=== PATIENT | female | born 1930 | race Caucasian/White ===

== ENCOUNTER 2016-06-10 14:23 | Outpatient (CLI) | payer MEDICARE, OTHER | END 2016-06-10 14:24 | disposition home or self-care (01) | DX: I10 Essential (primary) hypertension (principal) ==

== ENCOUNTER 2016-10-08 19:48 | Outpatient (CLI) | payer MEDICARE, OTHER ==
--- NOTE | 2016-10-08 20:55 | Ultrasound Preliminary Report ---
Exam: US Duplex Ext Veins Right IMPRESSION: No evidence for deep venous thrombosis. [facility] SITE ID: [id number]
--- NOTE | 2016-10-08 20:57 | Ultrasound Report ---
EXAM: RIGHT LOWER EXTREMITY VENOUS ULTRASOUND EXAM DATE: 10/08/2016 08:42 PM. CLINICAL HISTORY: Right leg edema. COMPARISON: None. TECHNIQUE: Real-time sonographic vascular imaging was performed by the tar leveler through the lower extremity utilizing both color-flow and Doppler spectral analysis. Multiple pharmaceutical representative static penny ges were saved for review. FINDINGS: Common Femoral Vein (CFV): Normal. CFV-GSV Junction: Normal. Profunda Femoral Vein (PFV): Normal. Femoral Vein (FV) Prox: Normal. Femoral Vein (FV) Mid: Normal. Femoral Vein (FV) Dist: Normal. Popliteal Vein: Normal. Posterior Tibial Veins: Normal. Peroneal Veins: Normal. Other: None. IMPRESSION: No evidence for deep venous thrombosis. [facility] Referring Provider Line: [phone] SITE ID: [id number]
== END 2016-10-08 19:49 | disposition home or self-care (01) ==
LOC: DI 19:48
PROVIDERS: ATTEND Family Medicine
DX: R60.0 Localized edema (principal)

== ENCOUNTER 2016-11-12 14:27 | Outpatient (CLI) | payer MEDICARE, OTHER ==
--- NOTE | 2016-11-12 18:02 | Ultrasound Report ---
ULTRASOUND RIGHT MEDIAL THIGH: 11/12/2016 CLINICAL INDICATION: Palpable abnormality. TECHNIQUE: Real-time scanning was performed with software support representative static images obtained. FINDINGS: Ultrasound of the palpable abnormality identified by the patient was performed. At this s ite, there is a varicosity of the greater saphenous vein. No other abnormality is appreciated in the region. IMPRESSION: GREATER SAPHENOUS VARICOSITY CORRELATING WITH THE PALPABLE ABNORMALITY. JOB #: [id number] EXT JOB #:
== END 2016-11-12 14:28 | disposition home or self-care (01) ==
LOC: DI 14:27
PROVIDERS: ATTEND Family Medicine
DX: I83.91 Asymptomatic varicose veins of right lower extremity (principal)
CPT/HCPCS: 76882

== ENCOUNTER 2017-08-01 08:00 | Outpatient (CLI) | payer MEDICARE, OTHER ==
[2017-08-01 12:43] LABS: BASOPHILS # (AUTO) 0.1 10^3/uL (0.0-0.1); BASOPHILS % (AUTO) 1.7 %; EOSINOPHILS # (AUTO) 0.1 10^3/uL (0.0-0.7); EOSINOPHILS % (AUTO) 1.8 %; HGB - HEMOGLOBIN 13.2 g/dL (12.0-16.0); LYMPHOCYTES % (AUTO) 41.9 %; MEAN CORPUSCULAR HEMOGLOBIN 29.4 pg (27.0-31.0); MEAN CORPUSCULAR HGB CONC 33.9 g/dL (32.0-36.0); MEAN CORPUSCULAR VOLUME 86.7 fL (81.0-99.0); MEAN PLATELET VOLUME 8.1 fL (7.9-10.8); MONOCYTES # (AUTO) 0.6 10^3/uL (0.0-1.0); MONOCYTES % (AUTO) 11.8 %; NEUTROPHILS % (AUTO) 42.8 %; PLT - PLATELET COUNT 267 10^3/uL (130-450); RED CELL DISTRIBUTION WIDTH 13.6 % (12.0-15.0); WHITE BLOOD COUNT 4.7 x10^3/uL (4.8-10.8)
[2017-08-01 13:27] LABS: ALBUMIN 4.1 g/dL (3.2-5.5); ALBUMIN/GLOBULIN RATIO 1.3 (1.0-2.2); ALKALINE PHOSPHATASE 49 IU/L (42-121); ALT ALANINE AMINOTRANSFERASE 23 IU/L (10-60); AST ASPARTATE AMINOTRANSFERASE 26 IU/L (10-42); BILIRUBIN,TOTAL 0.2 mg/dL (0.2-1.0); BUN - BLOOD UREA NITROGEN 21 mg/dL (6-20); CARBON DIOXIDE - CO2 26 mmol/L (21-32); CHLORIDE 101 mmol/L (101-111); CHOL/HDL RATIO 3.2 (<4.4); CHOLESTEROL 199 mg/dL; CREATININE 0.7 mg/dL (0.4-1.0); GFR - MDRD 80 (>89); GLUCOSE 100 mg/dL (70-100); HDL CHOLESTEROL 62 mg/dL; LDL CHOLESTEROL,CALCULATED 119 mg/dL; LDL/HDL RATIO 1.9 (<4.4); SODIUM 133 mmol/L (135-145); TOTAL PROTEIN 7.2 g/dL (6.7-8.2); VLDL CHOLESTEROL 18 mg/dL
== END 2017-08-01 08:01 | disposition home or self-care (01) ==
LOC: LAB.WCP 08:00
PROVIDERS: ATTEND Family Medicine
DX: I10 Essential (primary) hypertension (principal); E78.1 Pure hyperglyceridemia
CPT/HCPCS: 36415; 80053; 80061; 83721; 84443; 85025

== ENCOUNTER 2017-10-02 06:57 | Day surgery (SDC) | payer MEDICARE, OTHER ==
[~2017-10-02 06:57] MED LIST: CYCLOPENTOLATE 1% OPHTH DROPS 2 ML ONE; KETOROLAC 0.45% OPHTH DROPS ONE; PHENYLEPHRINE 2.5% OPHTH 2 ML DROPS ONE; PROPARACAINE 0.5% OPHTH DROPS 15 ML ONE
[2017-10-02] MEDS ORDERED: CYCLOPENTOLATE 1% OPHTH DROPS 2 ML RIGHTEYE ONE (07:11)
[2017-10-02] MEDS ORDERED: KETOROLAC 0.45% OPHTH DROPS RIGHTEYE ONE (07:11)
[2017-10-02] MEDS ORDERED: PROPARACAINE 0.5% OPHTH DROPS 15 ML RIGHTEYE ONE (07:11)
[2017-10-02] MEDS ORDERED: PHENYLEPHRINE 2.5% OPHTH 2 ML DROPS RIGHTEYE ONE (07:11)
[2017-10-02] MEDS ORDERED: BRIMONIDINE 0.2% OPHTH DROPS 5 ML ONE (07:19)
[2017-10-02] MEDS ORDERED: TIMOLOL 0.5% OPHTH DROPS ONE (07:19)
[2017-10-02] MEDS ORDERED: BSS/LIDOCAINE/EPINEPHRINE 1 ML SYRINGE ONE (07:19)
[2017-10-02] MEDS ORDERED: PROPARACAINE 0.5% OPHTH DROPS 15 ML ONE (07:19)
[2017-10-02] MEDS ORDERED: VANCOMYCIN OPHTHALMI 8MG/0.8ML 8 MG/0.8 ML SYRINGE IO ONE (07:19)
[2017-10-02] MEDS ORDERED: TRIAMCIN/MOXIFLOX OPHTHALMIC 0.6 ML VIAL IO ONE (07:19)
[2017-10-02] MEDS ORDERED: LACTATED RINGERS 500 ML IV ONE (07:35)
[2017-10-02 07:36] VITALS: BP 182/55
== END 2017-10-02 06:58 | disposition home or self-care (01) ==
LOC: SDS 06:57
PROVIDERS: ATTEND Ophthalmology
PROC: 08RJ3JZ Replacement of Right Lens with Synthetic Substitute, Percutaneous Approach (ICD-10-PCS; principal; 2017-10-02)
DX: Z53.8 Procedure and treatment not carried out for other reasons (principal); H25.811 Combined forms of age-related cataract, right eye
CPT/HCPCS: 66984; A9270; J3490

== ENCOUNTER 2017-10-30 07:20 | Day surgery (SDC) | payer MEDICARE, OTHER ==
[2017-10-30] MEDS ORDERED: BSS/LIDOCAINE/EPINEPHRINE 1 ML SYRINGE ONE (07:22)
[2017-10-30] MEDS ORDERED: BRIMONIDINE 0.2% OPHTH DROPS 5 ML ONE (07:22)
[2017-10-30] MEDS ORDERED: TIMOLOL 0.5% OPHTH DROPS ONE (07:22)
[2017-10-30] MEDS ORDERED: PROPARACAINE 0.5% OPHTH DROPS 15 ML RIGHTEYE ONE ×3 (07:55→09:00)
[2017-10-30] MEDS ORDERED: CYCLOPENTOLATE 1% OPHTH DROPS 2 ML RIGHTEYE ONE (07:55)
[2017-10-30] MEDS ORDERED: PHENYLEPHRINE 2.5% OPHTH 2 ML DROPS RIGHTEYE ONE (07:55)
[2017-10-30] MEDS ORDERED: KETOROLAC 0.45% OPHTH DROPS RIGHTEYE ONE (07:55)
[2017-10-30] MEDS ORDERED: LACTATED RINGERS 500 ML IV ONE (08:03)
[2017-10-30] MEDS ORDERED: BRIMONIDINE 0.2% OPHTH DROPS 5 ML OPTH ONE ×2 (08:52→09:00)
[2017-10-30] MEDS ORDERED: EPINEPHrine 1 MG/ML AMP IR ONE ×2 (08:53→09:08)
[2017-10-30] MEDS ORDERED: CHONDR SULF/HYALURONATE SYRINGE IO ONE ×2 (08:53→09:08)
[2017-10-30] MEDS ORDERED: BSS/LIDOCAINE/EPINEPHRINE 1 ML SYRINGE IO ONE ×3 (08:54→09:08)
[2017-10-30] MEDS ORDERED: TIMOLOL 0.5% OPHTH DROPS OPTH ONE ×2 (08:54→09:08)
[2017-10-30] MEDS: TRIAMCIN/MOXIFLOX OPHTHALMIC 0.6 ML VIAL IO ONE ×2 (08:55→09:09)
[2017-10-30] MEDS: VANCOMYCIN OPHTHALMI 8MG/0.8ML 8 MG/0.8 ML SYRINGE IO ONE ×2 (08:56→09:09)
[2017-10-30] MEDS ORDERED: MIDAZOLAM 2 MG/2 ML VIAL IVP ONE (09:25)
[2017-10-30 09:32] VITALS: BP 164/59
--- NOTE | 2017-10-30 10:25 | OPERATIVE REPORT ---
DATE OF SERVICE: 10/30/2017 Physician: Horacio Lubin MD PREOPERATIVE DIAGNOSIS: Visually significant cataract, right eye. This was her first cataract surgery. POSTOPERATIVE DIAGNOSIS: Visually significant cataract, right eye. This was her first cataract surgery. NAME OF PROCEDURE: Phacoemulsification with posterior chamber intraocular lens implant, right eye. SURGEON: Horacio Lubin MD ANESTHESIA: Monitored anesthesia care. COMPLICATIONS: None. OPERATIVE INDICATIONS: This is an 87-year-old woman with progressive vision loss in the right eye due to 2+ nuclear sclerotic, 2+ cortical, and 1+ posterior subcapsular cataract. Best corrected visual acuity was 20/25, with glare to 20/400 in the right eye. INDICATIONS FOR SURGERY: Overall decrease in vision, difficulty seeing words, closed caption of game scores on TV, difficulty seeing street signs, difficulty driving in low light or at night, difficulty driving at night because of head lights from other vehicles, difficulty with glare or bright lights in any situation, and difficulty tracking a golf ball. She was consented at length concerning risks and benefits of cataract surgery, after which she expressed a desire to proceed with surgery. OPERATIVE PROCEDURE: The patient was taken into OR #3, and placed under monitored anesthesia care. A surgical timeout was conducted confirming correct patient, correct procedure, and correct surgical site. She was placed under the LenSx laser, and her eye was docked to the laser interface. Laser performed the capsulotomy, lens softening, phaco wounds, and arcuate keratotomy incisions. She was then moved to the operating microscope, given topical anesthesia, and then prepped and draped in the usual sterile fashion. The eye was entered at the 12 and 9 o'clock positions. Intracameral Shugarcaine was injected into the anterior chamber, followed by Viscoat. A capsulorrhexis flap created by the LenSx laser was removed from the anterior chamber. Nucleus was hydrodissected and phacoemulsified. The cortex was evacuated using automated infusion and aspiration. Provisc was injected in the capsular bag, and a 16.0 diopter multifocal Toric intraocular lens was inserted into the bag and rotated to axis 095. Approximately 0.8 mL of a mixture of triamcinolone, moxifloxacin, and vancomycin was injected subconjunctivally in the superior quadrant for infection and inflammation prophylaxis. I and A was used to evacuate the viscoelastic materials. The lens was verified to still be in axis 095. The eye was inflated to physiologic pressure using balanced salt solution, and found to be watertight. Again, the lens was verified a final time to be in the proper axis. The patient was taken from the operating room in good condition, and given postop instructions. TD: 10/30/2017 09:42
== END 2017-10-30 07:21 | disposition home or self-care (01) ==
LOC: SDS 07:20
PROVIDERS: ATTEND Ophthalmology
PROC: 08RJ3JZ Replacement of Right Lens with Synthetic Substitute, Percutaneous Approach (ICD-10-PCS; principal; 2017-10-30 08:30)
DX: E11.36 Type 2 diabetes mellitus with diabetic cataract (principal); I10 Essential (primary) hypertension
CPT/HCPCS: 66984; A9270; J3490; V2632

== ENCOUNTER 2018-01-29 08:29 | Day surgery (SDC) | payer MEDICARE, OTHER ==
[~2018-01-29 08:29] MED LIST changes: +BRIMONIDINE 0.2% OPHTH DROPS 5 ML ONE; +BSS/LIDOCAINE/EPINEPHRINE 1 ML SYRINGE ONE; +EPINEPHrine 1 MG/ML AMP ONE; +TIMOLOL 0.5% OPHTH DROPS ONE; +TRIAMCIN/MOXIFLOX OPHTHALMIC 0.6 ML VIAL IO ONE; +VANCOMYCIN OPHTHALMI 8MG/0.8ML 8 MG/0.8 ML SYRINGE IO ONE
--- NOTE | 2018-01-29 08:38 | ANESTHESIA ---
Pre-Anesthesia VS, & Labs - Diagnosis Left senile combined cataract - Procedure Left laser assisted phaco with IOL implant Height 5 ft 4 in - Is Patient ?: No Home Medications and Allergies Ascorbic Acid [Vitamin C] 500 mg PO DAILY 10/01/17 Losartan Potassium 25 mg PO DAILY 10/01/17 Multivitamin [Multiple Vitamins] 1 each PO DAILY 10/01/17 Allergies/Adverse Reactions: Allergies Allergy/AdvReac Type Severity Reaction Status Date / Time Sulfa (Sulfonamide Allergy Rash Verified 12/31/17 12:45 Antibiotics) hydrocodone AdvReac Nausea Verified 01/29/18 08:54 Anes History & Medical History - Medical History Cardiovascular: reports: Hypertension Pulmonary: reports: None Gastrointestinal: reports: GERD Urinary: reports: Incontinence, Frequency Musculoskeletal: reports: Osteoarthritis Endocrine/Autoimmune: reports: None Skin: reports: None - Surgical History Eyes Ears Nose Throat (EENT): Tonsil/Adenoidectomy Gynecologic: Hysterectomy Dermatologic: Skin cancer surgery Plan Anesthesia Type: MAC Consent for Procedure(s) Verified and Reviewed: Yes Code Status: Attempt Resuscitation ASA classification: 2-Mild systemic disease Is this case an emergency?: No
[2018-01-29] MEDS ORDERED: PHENYLEPHRINE 2.5% OPHTH 2 ML DROPS LEFTEYE ONE (08:54)
[2018-01-29] MEDS ORDERED: CYCLOPENTOLATE 1% OPHTH DROPS 2 ML LEFTEYE ONE (08:54)
[2018-01-29] MEDS ORDERED: KETOROLAC 0.45% OPHTH DROPS LEFTEYE ONE (08:54)
[2018-01-29] MEDS ORDERED: PROPARACAINE 0.5% OPHTH DROPS 15 ML LEFTEYE ONE ×2 (08:54→10:30)
[2018-01-29] MEDS ORDERED: LACTATED RINGERS 500 ML IV ONE (08:55)
[2018-01-29] MEDS ORDERED: MIDAZOLAM 2 MG/2 ML VIAL IVP ONE (10:11)
[2018-01-29] MEDS ORDERED: BSS/LIDOCAINE/EPINEPHRINE 1 ML SYRINGE IO ONE (10:48)
[2018-01-29] MEDS ORDERED: EPINEPHrine 1 MG/ML AMP IR ONE (10:48)
[2018-01-29] MEDS ORDERED: BRIMONIDINE 0.2% OPHTH DROPS 5 ML OPTH ONE (10:48)
[2018-01-29] MEDS ORDERED: CHONDR SULF/HYALURONATE SYRINGE IO ONE (10:49)
[2018-01-29] MEDS ORDERED: TIMOLOL 0.5% OPHTH DROPS OPTH ONE (10:49)
[2018-01-29 11:19] VITALS: BP 164/64
--- NOTE | 2018-01-29 13:03 | OPERATIVE REPORT ---
DATE OF SERVICE: 01/29/2018 Physician: Horacio Lubin MD PREOPERATIVE DIAGNOSIS: Visually significant cataract, left eye. Cataract surgery was performed on the right eye on 11/08/2017. POSTOPERATIVE DIAGNOSIS: Visually significant cataract, left eye. Cataract surgery was performed on the right eye on 11/08/2017. NAME OF PROCEDURE: Phacoemulsification with posterior chamber intraocular lens implant, left eye, with laser assist. SURGEON: Horacio Lubin MD. ANESTHESIA: Monitored anesthesia care. COMPLICATIONS: None. OPERATIVE INDICATIONS: This is an 87-year-old woman with progressive vision loss in the left eye, due to 2+ nuclear sclerotic and 3+ cortical cataract. Best corrected visual acuity was 20/25 with glare to 20/400 in the left eye. Indications for surgery were overall decrease in vision, difficulty reading small print, difficulty seeing street signs, difficulty driving in low light or at night, difficulty driving at night because of headlights from other vehicles, and difficulty with glare or bright lights in any situation, and difficulty tracking a golf ball. She was consented at length, concerning risks and benefits of cataract surgery, after which she expressed a desire to proceed with surgery. OPERATIVE PROCEDURE: The patient was taken into OR #3 and placed under monitored anesthesia care. A surgical timeout was conducted, confirming the correct patient, correct procedure, and correct surgical site. She was placed on the LenSx laser and her eye was docked to the laser interface. The laser performed a capsulotomy, lens softening, phaco wounds, and arcuate keratotomy incisions. She was then moved to the operating microscope, given topical anesthesia, and then prepped and draped in the usual sterile fashion. The eye was entered at the 6 and 3 o'clock positions. Intracameral Shugarcaine was injected into the anterior chamber, followed by Viscoat. The capsulorrhexis flap created by the LenSx laser was removed from the anterior chamber. The nucleus was hydrodissected and phacoemulsified. The cortex was evacuated using automated infusion and aspiration. Provisc was injected in the capsular bag and a 20.5-diopter multifocal, toric lens was inserted into the bag and rotated to axis 075. Approximately 0.8 mL of a mixture of triamcinolone, moxifloxacin, and vancomycin was injected subconjunctivally in the superior quadrant for infection and inflammation prophylaxis. I and A was used to evacuate the viscoelastic materials. The eye was inflated to physiologic pressure, using balanced salt solution, and found to be watertight, and again, the lens was verified to be in the correct axis to correct toricity. The patient was taken from the operating room in good condition and given postop instructions. TD: 01/29/2018 11:57 JEYSON
== END 2018-01-29 08:30 | disposition home or self-care (01) ==
LOC: SDS 08:29
PROVIDERS: ATTEND Ophthalmology
PROC: 08RK3JZ Replacement of Left Lens with Synthetic Substitute, Percutaneous Approach (ICD-10-PCS; principal; 2018-01-29 09:30)
DX: H25.812 Combined forms of age-related cataract, left eye (principal); I10 Essential (primary) hypertension; K21.9 Gastro-esophageal reflux disease without esophagitis
CPT/HCPCS: 66984; A9270; J3490; V2632

== ENCOUNTER 2018-07-08 14:48 | Outpatient (CLI) | payer MEDICARE, OTHER ==
--- NOTE | 2018-07-09 09:50 | XRAY Report ---
Reason: COUGH,CHRONIC Procedure Date: 07/08/2018 Accession Number: [id number] / [id number] Procedure: WCP - Chest 2 View X-Ray CPT Code: 44013 FULL RESULT: EXAM: CHEST RADIOGRAPHY EXAM DATE: 07/08/2018 03:03 PM. CLINICAL HISTORY: Cough, chronic. COMPARISON: None. TECHNIQUE: 2 views. FINDINGS: Lungs/Pleura: No focal opacities evident. No pleural effusion. No pneumothorax. Normal volumes. Mediastinum: Heart and mediastinal contours are unremarkable. Other: None. IMPRESSION: Normal 2-view chest radiography. [facility]
== END 2018-07-08 14:49 | disposition home or self-care (01) ==
LOC: DI.WCP 14:48
PROVIDERS: ATTEND Family Medicine
DX: R05 Cough (principal)
CPT/HCPCS: 71046

== ENCOUNTER 2018-07-15 08:00 | Outpatient (CLI) | payer MEDICARE, OTHER ==
[2018-07-15 20:01] LABS: BASOPHILS % (AUTO) 1.2 %; HGB - HEMOGLOBIN 13.6 g/dL (12.0-16.0); LYMPHOCYTES % (AUTO) 48.4 %; MEAN CORPUSCULAR HGB CONC 32.7 g/dL (32.0-36.0); MEAN CORPUSCULAR VOLUME 88.5 fL (81.0-99.0); MEAN PLATELET VOLUME 7.9 fL (7.9-10.8); MONOCYTES # (AUTO) 0.5 10^3/uL (0.0-1.0); MONOCYTES % (AUTO) 12.1 %; NEUTROPHILS # (AUTO) 1.5 10^3/uL (1.5-6.6); NEUTROPHILS % (AUTO) 37.3 %; PLT - PLATELET COUNT 281 10^3/uL (130-450); RED CELL DISTRIBUTION WIDTH 13.9 % (12.0-15.0); WHITE BLOOD COUNT 4.1 x10^3/uL (4.8-10.8)
[2018-07-15 20:17] LABS: ALBUMIN 3.9 g/dL (3.2-5.5); ALBUMIN/GLOBULIN RATIO 1.3 (1.0-2.2); ALKALINE PHOSPHATASE 48 IU/L (42-121); ALT ALANINE AMINOTRANSFERASE 23 IU/L (10-60); AST ASPARTATE AMINOTRANSFERASE 27 IU/L (10-42); BILIRUBIN,TOTAL 0.8 mg/dL (0.2-1.0); BUN - BLOOD UREA NITROGEN 20 mg/dL (6-20); CARBON DIOXIDE - CO2 25 mmol/L (21-32); CHLORIDE 99 mmol/L (101-111); CHOL/HDL RATIO 3.5 (<4.4); CHOLESTEROL 208 mg/dL; CREATININE 0.7 mg/dL (0.4-1.0); GFR - MDRD 79 (>89); GLUCOSE 111 mg/dL (70-100); HDL CHOLESTEROL 60 mg/dL; LDL CHOLESTEROL,CALCULATED 129 mg/dL; LDL/HDL RATIO 2.2 (<4.4); SODIUM 132 mmol/L (135-145); VLDL CHOLESTEROL 19 mg/dL
== END 2018-07-15 23:59 | disposition home or self-care (01) ==
LOC: LAB.WCP 08:00
PROVIDERS: ATTEND Family Medicine
DX: I10 Essential (primary) hypertension (principal); E78.1 Pure hyperglyceridemia
CPT/HCPCS: 36415; 80053; 80061; 83721; 85025

== ENCOUNTER 2018-07-21 08:51 | Outpatient (CLI) | payer MEDICARE, OTHER ==
[2018-07-21 13:36] LABS: BILIRUBIN,URINE NEGATIVE (NEGATIVE); GLUCOSE, URINE (UA) NEGATIVE (NEGATIVE); KETONES,URINE (UA) NEGATIVE (NEGATIVE); LEUKOCYTE ESTERASE, URINE TRACE (NEGATIVE); NITRITE,URINE NEGATIVE (NEGATIVE); OCCULT BLOOD,URINE NEGATIVE (NEGATIVE); PROTEIN,URINE NEGATIVE (NEGATIVE); UROBILINOGEN,URINE 0.2 (NORMAL) E.U./dL (NORMAL)
[2018-07-21 13:47] LABS: BACTERIA,URINE Rare /HPF (None Seen); CLARITY,URINE CLEAR (CLEAR); RBC,URINE None Seen /HPF (0-5); SQUAMOUS EPITHELIAL CELL,UR MANY Squamous (<= Few)
== END 2018-07-21 23:59 | disposition home or self-care (01) ==
LOC: LAB.R 08:51
PROVIDERS: ATTEND Family Medicine
DX: R35.0 Frequency of micturition (principal)
CPT/HCPCS: 81001

== ENCOUNTER 2018-07-24 10:01 | Outpatient (CLI) | payer MEDICARE, OTHER | END 2018-07-24 23:59 | disposition home or self-care (01) | LOC: LAB.R 10:01 | PROVIDERS: ATTEND Registered Nurse | DX: N30.00 Acute cystitis without hematuria (principal) | CPT/HCPCS: 87086 ==

== ENCOUNTER 2018-07-27 12:50 | Outpatient (CLI) | payer MEDICARE, OTHER ==
--- NOTE | 2018-07-27 15:41 | Ultrasound Report ---
Reason: PERIPHERAL ARTERY DISEASE,BONE DISORDER Procedure Date: 07/27/2018 Accession Number: [id number] / [id number] Procedure: US - Duplex Lwr Ext Arterial Bilat CPT Code: FULL RESULT: EXAM: BILATERAL LOWER EXTREMITY ARTERIAL DOPPLER ULTRASOUND EXAM DATE: 07/27/2018 01:03 PM. CLINICAL HISTORY: Peripheral artery disease, bone disorder. COMPARISON: None. TECHNIQUE: Real-time sonographic vascular imaging was performed by the tool and die machinist, utilizing color-flow, Doppler flow, and spectral analysis. Multiple construction sales representative static images were saved for review. FINDINGS: Arterial duplex of the bilateral lower extremities was performed which demonstrates 3 vessel patency to both ankles as well as perfusion of the dorsalis pedis artery. With the exception of the right posterior tibial and peroneal arteries and left peroneal artery, brisk arterial systolic upstrokes are preserved by spectral Doppler. Right Lower Extremity: FELLER BUNCHER OPERATOR: PSV 120 cm/sec. PSFA: PSV 96.2 cm/sec. MSFA: PSV 15.2 cm/sec. DSFA: PSV 125.1 cm/sec. PFA: PSV 98 cm/sec. POP: PSV 75.1 cm/sec. HILARIO: PSV 85.7 cm/sec. VOCATIONAL REHABILITATION CONSULTANT: PSV 15.8 cm/sec. PALLAVI: PSV 47 cm/sec. DPA: PSV 34 cm/sec. Left Lower Extremity: FELLER BUNCHER OPERATOR: PSV 100.2 cm/sec. PSFA: PSV 90.2 cm/sec. MSFA: PSV 83.5 cm/sec. DSFA: PSV 135.4 cm/sec. PFA: PSV 17.1 cm/sec. POP: PSV 61.6 cm/sec. HILARIO: PSV 84.7 cm/sec. VOCATIONAL REHABILITATION CONSULTANT: PSV 87.6 cm/sec. PALLAVI: PSV 13.5 cm/sec. DPA: PSV 23.8 cm/sec. IMPRESSION: Patent three-vessel inflow to both ankles with preserved vascularity of the bilateral dorsalis pedis arteries. Blunted Doppler signal to the left peroneal and right peroneal and posterior tibial arteries suggests some degree of underlying peripheral arterial disease. [facility]
--- NOTE | 2018-07-28 09:26 | DEXA Report ---
Reason: PERIPHERAL ARTERY DISEASE,BONE DISORDER Procedure Date: 07/27/2018 Accession Number: [id number] / [id number] Procedure: DEX - Dexa Spine and/or Hip CPT Code: FULL RESULT: EXAM: Dexa Spine and/or Hip DATE: 07/27/2018 2:06 PM CLINICAL HISTORY: PERIPHERAL ARTERY DISEASE,BONE DISORDER TECHNIQUE: Dual energy x-ray absorptiometry (DXA) was performed on a [employer] System. Regions measured are the AP Spine, femoral neck, and if needed forearm. COMPARISON: 12/21/2015. In accordance with the International Society for Clinical Densitometry (ISCD) guidelines, data from previous exams may be reanalyzed using current recommendations and techniques. This is done to allow a more accurate basis for comparison with the current study. FINDINGS: The data for the lumbar spine is as follows: BMD (g/cm/cm) T-SCORE Z-SCORE REGION L1 0.843 -2.4 -0.4 L2 0.932 -2.2 -0.3 L3 1.173 -0.2 1.7 L4 1.073 -1.1 0.9 TOTAL 1.010 -1.4 0.5 NOTE: All evaluable vertebrae are used for classification The data for the hip is as follows: BMD (g/cm/cm) T-SCORE Z-SCORE REGION Neck 0.756 -2.0 0.4 TOTAL 0.790 -1.7 0.6 NOTE: The femoral neck or total proximal femur, whichever is lowest, is used for classification. DXA RESULTS SUMMARY: Spine SCAN DATE AGE BMD CHANGE VS CHANGE VS PREVIOUS PREVIOUS % 07[age]27/2018 [age] 1.010 -0.035 -3.3 12/21/2015 85.1 1[age]045 * Denotes significant change at the 95% confidence level. Denotes dissimilar scan types or analysis methods. DXA RESULTS SUMMARY: Hip SCAN DATE AGE BMD CHANGE VS CHANGE VS PREVIOUS PREVIOUS % [birth year]27[birth year]2018 86.7 0.79 -0.003 -0.4 [birth year]21[birth year]2015 85.1 0.793 * Denotes significant change at the 95% confidence level. Denotes dissimilar scan types or analysis methods. IMPRESSION: THE WHO CLASSIFICATION BASED ON THE INTERNATIONAL REFERENCE STANDARD IS OSTEOPENIA. THE FRACTURE RISK IS INCREASED. RECOMMENDATION: Patients with diagnosis of osteoporosis or osteopenia should have regular bone mineral density assessment. For those eligible for Medicare, routine testing is allowed once every 2 years. Testing frequency can be increased for patients who have rapidly progressing disease or for those who are receiving medical therapy to restore bone mass. COMMENT: World Health Organization (WHO) definitions for osteoporosis and osteopenia: NORMAL BMD: T-score at -1.0 or higher, fracture risk is low OSTEOPENIA BMD: T-score between -1.0 and -2.5, fracture risk is increased. OSTEOPOROSIS BMD: T-score at -2.5 or lower, fracture risk is high. National Osteoporosis Foundation recommends: 1. Obtain adequate dietary calcium (at least 1200 mg per day) and vitamin D (400-800 international units per day). 2. Participate, as appropriate, in regular weightbearing and muscle-strengthening exercise. 3. Avoid tobacco use and reduce alcohol and caffeine intake. 4. For more detailed information see the website at www.NOF.org.
== END 2018-07-27 12:51 | disposition home or self-care (01) ==
LOC: DI 12:50
PROVIDERS: ATTEND Family Medicine
DX: M85.89 Other specified disorders of bone density and structure, multiple sites (principal); I73.9 Peripheral vascular disease, unspecified
CPT/HCPCS: 77080; 93925

== ENCOUNTER 2019-10-15 09:20 | Outpatient (CLI) | payer MEDICARE, OTHER ==
[2019-10-15 12:16] LABS: BASOPHILS # (AUTO) 0.1 10^3/uL (0.0-0.1); EOSINOPHILS # (AUTO) 0.1 10^3/uL (0.0-0.7); HGB - HEMOGLOBIN 13.4 g/dL (12.0-16.0); LYMPHOCYTES % (AUTO) 40.2 %; MEAN CORPUSCULAR HEMOGLOBIN 28.4 pg (27.0-31.0); MEAN CORPUSCULAR HGB CONC 32.3 g/dL (32.0-36.0); MEAN CORPUSCULAR VOLUME 87.9 fL (81.0-99.0); MEAN PLATELET VOLUME 10.1 fL (7.9-10.8); MONOCYTES # (AUTO) 0.6 10^3/uL (0.0-1.0); MONOCYTES % (AUTO) 11.7 %; NEUTROPHILS # (AUTO) 2.2 10^3/uL (1.5-6.6); NEUTROPHILS % (AUTO) 45.9 %; PLT - PLATELET COUNT 289 10^3/uL (130-450); RED BLOOD COUNT 4.72 10^6/uL (4.20-5.40); WHITE BLOOD COUNT 4.9 x10^3/uL (4.8-10.8)
[2019-10-15 13:00] LABS: ALBUMIN 4.1 g/dL (3.2-5.5); ALBUMIN/GLOBULIN RATIO 1.3 (1.0-2.2); ALKALINE PHOSPHATASE 57 IU/L (42-121); ALT ALANINE AMINOTRANSFERASE 25 IU/L (10-60); AST ASPARTATE AMINOTRANSFERASE 28 IU/L (10-42); BILIRUBIN,TOTAL 0.7 mg/dL (0.2-1.0); BUN - BLOOD UREA NITROGEN 18 mg/dL (6-20); CALCIUM 9.3 mg/dL (8.5-10.3); CARBON DIOXIDE - CO2 27 mmol/L (21-32); CHLORIDE 100 mmol/L (101-111); CHOL/HDL RATIO 3.7 (<4.4); CHOLESTEROL 214 mg/dL; CREATININE 0.8 mg/dL (0.4-1.0); GLUCOSE 104 mg/dL (70-100); HDL CHOLESTEROL 58 mg/dL; LDL CHOLESTEROL,CALCULATED 137 mg/dL; LDL/HDL RATIO 2.4 (<4.4); SODIUM 136 mmol/L (135-145); TOTAL PROTEIN 7.3 g/dL (6.7-8.2); VLDL CHOLESTEROL 19 mg/dL
== END 2019-10-15 23:59 | disposition home or self-care (01) ==
LOC: LAB.WCP 09:20
PROVIDERS: ATTEND Family Medicine
DX: I10 Essential (primary) hypertension (principal); E78.1 Pure hyperglyceridemia
CPT/HCPCS: 36415; 80053; 80061; 83721; 84443; 85025

== ENCOUNTER 2020-02-02 07:00 | Outpatient (CLI) | payer MEDICARE, OTHER ==
[2020-02-02 16:59] LABS: BILIRUBIN,URINE NEGATIVE (NEGATIVE); GLUCOSE, URINE (UA) NEGATIVE (NEGATIVE); KETONES,URINE (UA) NEGATIVE (NEGATIVE); LEUKOCYTE ESTERASE, URINE SMALL (NEGATIVE); NITRITE,URINE NEGATIVE (NEGATIVE); OCCULT BLOOD,URINE NEGATIVE (NEGATIVE); PROTEIN,URINE NEGATIVE (NEGATIVE); UROBILINOGEN,URINE 0.2 (NORMAL) E.U./dL (NORMAL)
[2020-02-02 17:18] LABS: CLARITY,URINE CLEAR (CLEAR)
[2020-02-02 17:19] LABS: BACTERIA,URINE None Seen /HPF (None Seen); RBC,URINE None Seen /HPF (0-5); SQUAMOUS EPITHELIAL CELL,UR FEW Squamous (<= Few)
== END 2020-02-02 23:59 | disposition home or self-care (01) ==
LOC: LAB.R 07:00
PROVIDERS: ATTEND Nurse Practitioner Obstetrics & Gynecology
DX: R35.0 Frequency of micturition (principal)
CPT/HCPCS: 81001; 87077; 87086; 87181

== ENCOUNTER 2020-04-28 09:27 | Outpatient (CLI) | payer MEDICARE, OTHER ==
[2020-04-28 12:29] LABS: BASOPHILS # (AUTO) 0.1 10^3/uL (0.0-0.1); BASOPHILS % (AUTO) 1.8 %; EOSINOPHILS # (AUTO) 0.1 10^3/uL (0.0-0.7); HGB - HEMOGLOBIN 14.1 g/dL (12.0-16.0); LYMPHOCYTES # (AUTO) 1.8 10^3/uL (1.5-3.5); LYMPHOCYTES % (AUTO) 39.6 %; MEAN CORPUSCULAR HEMOGLOBIN 28.7 pg (27.0-31.0); MEAN CORPUSCULAR HGB CONC 32.4 g/dL (32.0-36.0); MEAN CORPUSCULAR VOLUME 88.4 fL (81.0-99.0); MONOCYTES # (AUTO) 0.5 10^3/uL (0.0-1.0); MONOCYTES % (AUTO) 10.5 %; NEUTROPHILS # (AUTO) 2.1 10^3/uL (1.5-6.6); NEUTROPHILS % (AUTO) 45.9 %; PLT - PLATELET COUNT 293 10^3/uL (130-450); RED BLOOD COUNT 4.92 10^6/uL (4.20-5.40); RED CELL DISTRIBUTION WIDTH 13.2 % (12.0-15.0); WHITE BLOOD COUNT 4.6 x10^3/uL (4.8-10.8)
[2020-04-28 12:57] LABS: ALBUMIN 4.2 g/dL (3.2-5.5); ALBUMIN/GLOBULIN RATIO 1.4 (1.0-2.2); ALKALINE PHOSPHATASE 54 IU/L (42-121); ALT ALANINE AMINOTRANSFERASE 22 IU/L (10-60); AST ASPARTATE AMINOTRANSFERASE 25 IU/L (10-42); BILIRUBIN,TOTAL 0.7 mg/dL (0.2-1.0); BUN - BLOOD UREA NITROGEN 19 mg/dL (6-20); CALCIUM 9.2 mg/dL (8.5-10.3); CARBON DIOXIDE - CO2 26 mmol/L (21-32); CHLORIDE 101 mmol/L (101-111); CHOL/HDL RATIO 4.3 (<4.4); CHOLESTEROL 245 mg/dL; CREATININE 0.8 mg/dL (0.4-1.0); GLUCOSE 112 mg/dL (70-100); HDL CHOLESTEROL 57 mg/dL; LDL CHOLESTEROL,CALCULATED 160 mg/dL; LDL/HDL RATIO 2.8 (<4.4); TOTAL PROTEIN 7.1 g/dL (6.7-8.2); VLDL CHOLESTEROL 28 mg/dL
== END 2020-04-28 23:59 | disposition home or self-care (01) ==
LOC: LAB.WCP 09:27
PROVIDERS: ATTEND Family Medicine
DX: I10 Essential (primary) hypertension (principal); E78.1 Pure hyperglyceridemia; M85.80 Other specified disorders of bone density and structure, unspecified site
CPT/HCPCS: 36415; 80053; 80061; 83721; 84443; 85025

== ENCOUNTER 2020-07-11 07:00 | Outpatient (CLI) | payer MEDICARE, OTHER ==
[2020-07-11 12:03] LABS: HCT - HEMATOCRIT 42.1 % (37.0-47.0); HGB - HEMOGLOBIN 13.4 g/dL (12.0-16.0); MEAN CORPUSCULAR HEMOGLOBIN 28.5 pg (27.0-31.0); MEAN CORPUSCULAR HGB CONC 31.8 g/dL (32.0-36.0); MEAN CORPUSCULAR VOLUME 89.6 fL (81.0-99.0); MEAN PLATELET VOLUME 10.2 fL (7.9-10.8); RED BLOOD COUNT 4.7 10^6/uL (4.20-5.40); RED CELL DISTRIBUTION WIDTH 13.2 % (12.0-15.0); WHITE BLOOD COUNT 4.8 x10^3/uL (4.8-10.8)
[2020-07-11 12:30] LABS: T4 (THYROXINE) 7.69 ug/dL (6.09-12.23)
[2020-07-11 12:34] LABS: THYROID STIMULATING HORMONE 2.82 uIU/mL (0.34-5.60)
== END 2020-07-11 23:59 | disposition home or self-care (01) ==
LOC: LAB.WCP 07:00
PROVIDERS: ATTEND Obstetrics & Gynecology
DX: R53.83 Other fatigue (principal); Z13.21 Encounter for screening for nutritional disorder; R53.81 Other malaise
CPT/HCPCS: 36415; 82306; 83036; 84436; 84443; 84480; 85027

== ENCOUNTER 2020-08-04 19:59 | Inpatient (IN) | payer MEDICARE, OTHER ==
[2020-08-04 21:00] LABS: BASOPHILS # (AUTO) 0.1 10^3/uL (0.0-0.1); BASOPHILS % (AUTO) 1.7 %; EOSINOPHILS # (AUTO) 0.1 10^3/uL (0.0-0.7); EOSINOPHILS % (AUTO) 2.3 %; HCT - HEMATOCRIT 41.9 % (37.0-47.0); HGB - HEMOGLOBIN 13.7 g/dL (12.0-16.0); LYMPHOCYTES # (AUTO) 1.9 10^3/uL (1.5-3.5); LYMPHOCYTES % (AUTO) 37.3 %; MEAN CORPUSCULAR HEMOGLOBIN 28.8 pg (27.0-31.0); MEAN CORPUSCULAR HGB CONC 32.7 g/dL (32.0-36.0); MEAN PLATELET VOLUME 9.5 fL (7.9-10.8); MONOCYTES # (AUTO) 0.5 10^3/uL (0.0-1.0); MONOCYTES % (AUTO) 9.9 %; NEUTROPHILS # (AUTO) 2.5 10^3/uL (1.5-6.6); NEUTROPHILS % (AUTO) 48.6 %; PLT - PLATELET COUNT 284 10^3/uL (130-450); RED BLOOD COUNT 4.76 10^6/uL (4.20-5.40); RED CELL DISTRIBUTION WIDTH 13.3 % (12.0-15.0); WHITE BLOOD COUNT 5.2 x10^3/uL (4.8-10.8)
[2020-08-04 21:13] LABS: ALBUMIN 4.1 g/dL (3.2-5.5); ALBUMIN/GLOBULIN RATIO 1.3 (1.0-2.2); BILIRUBIN,TOTAL 0.4 mg/dL (0.2-1.0); CALCIUM 9.3 mg/dL (8.5-10.3); CREATININE 0.8 mg/dL (0.4-1.0); POTASSIUM 3.6 mmol/L (3.5-5.0); TOTAL PROTEIN 7.3 g/dL (6.7-8.2)
--- NOTE | 2020-08-04 21:33 | XRAY Report ---
PROCEDURE: Chest 1 View X-Ray INDICATIONS: Chest Pain TECHNIQUE: One view of the chest was acquired. COMPARISON: CXR 07/08/2018. FINDINGS: Surgical changes and devices: None. Lungs and pleura: No pleural effusions or pneumothorax. Lungs are clear. Mediastinum: Mediastinal contours appear normal. Aortic arch atherosclerotic calcifications. Heart s ize is normal. Bones and chest wall: No suspicious bony lesions. Overlying soft tissues appear unremarkable. IMPRESSION: No acute cardiopulmonary abnormality. Reviewed by: Shlomo Winslow MD on 08/04/2020 9:31 PM PDT Approved by: Shlomo Winslow MD on 08/04/2020 9:31 PM PDT Station ID: [id number]
[2020-08-04] MEDS ORDERED: oxyCODONE 5 MG TABLET PO PRN (22:26)
[2020-08-04] MEDS ORDERED: SODIUM CHLORIDE FLUSH 0.9% 10 ML SYRINGE IVP PRN (22:26)
[2020-08-04] MEDS ORDERED: ACETAMINOPHEN 325 MG TABLET PO PRN (22:26)
[2020-08-04] MEDS ORDERED: ONDANSETRON ODT 4 MG TABLET TL PRN (22:26)
[2020-08-04] MEDS ORDERED: ONDANSETRON 4 MG/2 ML VIAL IVP PRN (22:26)
[2020-08-04] MEDS ORDERED: ASPIRIN 325 MG TABLET PO STA (22:27)
--- NOTE | 2020-08-04 22:34 | HISTORY & PHYSICAL EXAMINATION ---
Chief Complaint - Chief Complaint Chief Complaint: chest pain History of Present Illness - Admitted From Admitted From:: Home - History Obtained From Records Reviewed: [facility] History obtained from: patient and Dr. Lane Exam Limitations: none - History of Present Illness HPI Comment/Other: 89-year-old female whose coronary artery risk factors include age, hypertension, that presents with central chest burning that radiates straight through to her back. Better with antacids and worse with food. Started yesterday. This is a more severe manifestation of symptoms that she has been having off and on for the last 3 to 4 years. It still has been mild, and only lasted an hour or 2. This is the first time is lasted this long and has been so severe. Anytime she tried to eat anything, even drinking water, the burning was severe. Prilosec did not help. But at acids [id number] did help. She is a non-smoker, does not take nonsteroidals on a regular basis. There is no shortness of breath, nausea, palpitations, jaw pain, arm pain with this. She thinks, she is not sure, that she may have had ulcers 20 or 30 years ago. She cannot remember.She has an occasional abdominal bloating, but no change in bowel lindsey bits. There is never been blood in her stool. She has never vomited blood. Temperature was 36.5. Pulse was 71. Blood pressure went from 174 initially and was 203 systolic after an hour and a half. Respirations were 16 and unlabored and she was 99% to 100% on room air. Physical exam was negative. Her initial troponin is mildly elevated in the low 30s. Unfortunately she has no previous EKGs to compare to and her current EKG is abnormal. As such she is being placed in observation for monitoring her cardiac enzymes. In the ER she was treated with aspirin,. No other medications were given. No antacids, no proton pump inhibitor. Chest x-ray without acute cardiopulmonary finding. 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 dad age 97 of natural causes. 1 brother w mental health issues. 1 sister with alcoholism. 1 daughter healthy Living arrangement: At home Living Situation: With family Social History Notes: Drinks 1 glass of wine/week. Never smoked. No history of recreational substance abuse. DPOA is daughter Leslye Fink. She is originally from [facility]. 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 First and second took her to [place] where she worked for the [employer] and [employer]. Second . She made her third has been online and came to live on [facility] in 2012. He was already living here. He of lung cancer in 2017. - Substance History Use: Uses substance without health or social issues: NONE Abuse: Recurrent use of substance despite neg consequences: NONE Dependence: Experiences withdrawal or developed tolerances: NONE - POLST Patient has POLST: No POLST Status: Full Code (Advanced Directive in PCP EMR) Meds/Allgy - Home Medications Home Medications: Ambulatory Orders Medication Instructions Recorded Confirmed Ascorbic Acid [Vitamin C] 500 mg PO DAILY 10/01/17 12/31/17 Losartan Potassium 25 mg PO DAILY 10/01/17 12/31/17 Multivitamin [Multiple Vitamins] 1 each PO DAILY 10/01/17 12/31/17 - Allergies Allergies/Adverse Reactions: Allergies Allergy/AdvReac Type Severity Reaction Status Date / Time Sulfa (Sulfonamide Allergy Rash Verified 08/04/20 20:19 Antibiotics) hydrocodone AdvReac Nausea Verified 08/04/20 20:19 Review of Systems - Constitutional Constitutional: reports: Fatigue (Used to walk twice a day. Now down to once a day at most. Nonspecific vague fatigue. No shortness of breath, edema with this.). denies: Fever, Chills, Weakness, Poor appetite, Diaphoresis, Night sweats - Eyes Eyes: reports: Irritation, Other (Astigmatism was repaired by Dr. Lubin and s he wears glasses) - Ears, Nose & Throat Ears, Nose & Throat: reports: Nasal discharge, Nasal obstruction, Nasal congestion, Postnasal drainage. denies: Ear pain, Hearing loss, Hearing aids, Tinnitus, Vertigo, Dentures, Sore throat, Hoarseness - Cardiovascular Cariovascular: reports: Chest pain, Edema (Right thigh and right leg off and on, chronic, years). denies: Irregular heart rate, Palpitations, Lightheadedness, S yncope, Exertional dyspnea, Decr. exercise tolerance, Orthopnea - Respiratory Respiratory: reports: Cough (Chronic, off-and-on, daily, nonproductive. She thinks it is allergies). denies: Wheezing, Snoring, Hemoptysis, Orthopnea, SOB at rest, SOB with exertion - Gastrointestinal Gastrointestinal: reports: Abdominal distention (Abdomen gets bloated off-and-on), Bloating. denies: Abdominal pain, Constipation, Diarrhea, Change in bowel habits, Black stools, Bloody stools, Nausea, Vomiting - Genitourinary Genitourinary: reports: Dysuria, Other (has vag irritation from pessary, painful to urinate, unable to empty bladder. Feels heavy pelvix at times.) - Musculoskeletal Musculoskeletal: reports: Joint pain (Mainly in her fingers.), Other (Gets almost nightly leg cramps for decades now). denies: Muscle pain, Back pain - Integumentary Integumentary: reports: Other (She has had a few cases of skin cancer but they have been removed.). denies: Rash, Pruritis, Lesions, Dryness - Neurological Neurological: denies: General weakness, Focal weakness, Headache, Dizziness, Memory problems, Pre-existing deficit - Psychiatric Psychiatric: reports: Anxiety, Other (insomnia) - Endocrine Endocrine: denies: Polyuria, Polydypsia, Polyphagia, Intolerance to cold - Hematologic/Lymphatic Hematologic/Lymphatic: denies: Anemia, Bruising, Petechiae Prior Level of Functionality: Able to complete activities of daily living. Gradually reducing her exercise habits as she is become more tired over the last year. She does not use any durable medical equipment.Lives in her own trailer home. Daughter lives in the same trailer park. Patient is still self-sufficient with regards to driving a car, paying bills, going grocery shopping's, cleaning her home Exam - Vital Signs Vital Signs: Vital Signs x48h Temp Pulse Resp BP Pulse Ox 08/04/20 21:55 71 16 203/77 H 100 08/04/20 20:15 36.5 C 85 16 174/85 H 99 - Physical Exam General Appearance: positive: No acute distress, Alert, Other (Thin, alert, slightly deaf. 5 foot 4 inches tall and weighs 64.86 kg.) Eyes Bilateral: positive: PERRL, EOMI ENT: positive: Pharynx nml Neck: positive: No JVD. negative: Stiff neck, Carotid bruit Respiratory: positive: No respiratory distress. negative: Wheezes, Rales, Rhonchi Cardiovascular: positive: Regular rate & rhythm, Systolic murmur. negative: G allop/S4, Friction rub Peripheral Pulses: positive: 1+ Abdomen: positive: Non-tender, No organomegaly, Nml bowel sounds, Other (Slight abdominal distention, she says she has bloating right now). negative: Guarding, Rebound Skin: positive: Warm, Dry Extremities: positive: Full ROM, No pedal edema Neurologic/Psychiatric: positive: Oriented x3, CN's nml (2-12), Motor nml, Se nsation nml Conclusion/Plan - Problem List (1) Chest pain Conclusion/Plan: With elevated troponin. Troponin is only mildly elevated and I initially suggested just repeating her troponin in 2 hours to see if needed to stay since history suggestive of reflux disease. She described a previous history of this problem. Unfortunately her baseline EKG is abnormal. There is no previous EKG to compare to. As such she will be brought into the hospital. Plan: Observation status Serial cardiac enzymes to rule out TN Repeat EKG in the morning Outpatient follow-up for stress test since we do not have availability on the [facility]. Qualifiers: Chest pain type: other chest pain Qualified Code(s): R07.89 - Other chest pain; R07.8 - Other chest pain (2) Elevated troponin Conclusion/Plan: Troponin is mildly elevated. No real clear etiology if it is not angina in that she does not have tachycardia causing demand ischemia. Her intermittent hypertension may be the cause. Right now her history is that of reflux or indigestion. Work-up is as in problem #1 (3) Abnormal EKG Conclusion/Plan: No EKG to compare to. She thinks her last EKG was 20 years ago when she was living in [place]. Repeat EKG in the morning. (4) Hypertension Conclusion/Plan: She is on losartan 25 mg a day. We will add Lopressor temporarily. She does have a component of anxiety to her past medical history that may be contributing to the hypertension at this time. Qualifiers: Hypertension type: essential hypertension Qualified Code(s): I10 - Essential (primary) hypertension - Lab Results Lab results reviewed: Yes Fish Bones: 08/04/20 20:51 08/04/20 20:51 - Diagnostic Imaging Results Diagnostic Imaging Results: positive: Final report reviewed Diagnostic Imaging Results Comments: INDICATIONS: Chest Pain TECHNIQUE: One view of the chest was acquired. COMPARISON: CXR 07/08/2018. FINDINGS: Surgical changes and devices: None. Lungs and pleura: No pleural effusions or pneumothorax. Lungs are clear. Mediastinum: Mediastinal contours appear normal. Aortic arch atherosclerotic calcifications. Heart size is normal. Bones and chest wall: No suspicious bony lesions. Overlying soft tissues appear unremarkable. IMPRESSION: No acute cardiopulmonary abnormality. Reviewed by: Shlomo Winslow MD on 08/04/2020 9:31 PM PDT Approved by: Shlomo Winslow MD on 08/04/2020 9:31 PM PDT Station ID: [id number] Optical Instrument Assembler: [facility] [place] Reading Radiologist: Shlomo Winslow MD Releasing Radiologist: Shlomo Winslow MD Released Date Time: 08/04/202130 - EKG Results EKG Interpreted Independently: No EKG Findings: Unable to assess EKG. ER MD has not provided it to be uploaded or scanned and by her verbal report she does have nondiagnostic ST-T wave changes. No previous EKG to compare to. Core Measures - Anticipated LOS I expect patient to be DC'd or transferred within 96 hours.: Yes - DVT/VTE - Prophylaxis VTE/DVT Device ordered at admit?: Yes
--- NOTE | 2020-08-04 22:38 | ED Physician Documentation ---
History of Present Illness - Stated complaint Stated Complaint: CP - Chief complaint Chief Complaint: Cardiac - History obtained from History obtained from: Patient - Additonal information Additional information: 89yF with pmh HTN, no other pmh , nonsmoker pp/w intermittent burning cp gradual onset since yesterday, a/w food, better with antacid, substernal radiating to BL shoulder blades. denies sob, cough, fever, nausea diaphoresis. denies prior cardiac history. Review of Systems Ten Systems: 10 systems reviewed and negative Cardiac: reports: Chest pain / pressure PD PAST MEDICAL HISTORY - Past Medical History Past Medical History: Yes Cardiovascular: Hypertension Respiratory: None Neuro: None Endocrine/Autoimmune: None GI: GERD DIRECTOR OF SOCIAL WORK: None : Incontinence, Frequency HEENT: None Psych: Anxiety Musculoskeletal: Osteoarthritis Derm: None - Past Surgical History Past Surgical History: Yes /DIRECTOR OF SOCIAL WORK: Hysterectomy HEENT: Tonsil/Adenoidectomy Derm: Skin cancer surgery - Present Medications Home Medications: Ambulatory Orders Medication Instructions Recorded Confirmed Ascorbic Acid [Vitamin C] 500 mg PO DAILY 10/01/17 12/31/17 Losartan Potassium 25 mg PO DAILY 10/01/17 12/31/17 Multivitamin [Multiple Vitamins] 1 each PO DAILY 10/01/17 12/31/17 - Allergies Allergies/Adverse Reactions: Allergies Allergy/AdvReac Type Severity Reaction Status Date / Time Sulfa (Sulfonamide Allergy Rash Verified 08/04/20 20:19 Antibiotics) hydrocodone AdvReac Nausea Verified 08/04/20 20:19 - Social History Does the pt smoke?: No Smoking Status: Never smoker Does the pt drink ETOH?: No Does the pt have substance abuse?: No - Immunizations Immunizations are current?: Yes - POLST Patient has POLST: No PD ED PE NORMAL - Vitals Vital signs reviewed: Yes - General General: Alert and oriented X 3, No acute distress, Well developed/nourished - HEENT HEENT: Atraumatic, PERRL, EOMI - Neck Neck: Supple, no meningeal sign - Cardiac Cardiac: RRR - Respiratory Respiratory: No respiratory distress, Clear bilaterally - Abdomen Abdomen: Non tender, Non distended - Derm Derm: Normal color, Warm and dry - Extremities Extremities: No deformity - Neuro Neuro: Alert and oriented X 3 - Psych Psych: Normal mood, Normal affect Results - Vitals Vitals: Vital Signs - 24 hr 08/04/20 08/04/20 20:15 21:55 Temperature 36.5 C Heart Rate 85 71 Respiratory 16 16 Rate Blood Pressure 174/85 H 203/77 H O2 Saturation 99 100 Oxygen O2 Source Room air - Labs Labs: Laboratory Tests 08/04/20 08/04/20 08/04/20 20:51 20:51 20:51 WBC 5.2 RBC 4.76 Hgb 13.7 Hct 41.9 MCV 88.0 MCH 28.8 MCHC 32.7 RDW 13.3 Plt Count 284 MPV 9.5 Neut # (Auto) 2.5 Lymph # (Auto) 1.9 [place] # (Auto) 0.5 Eos # (Auto) 0.1 Baso # (Auto) 0.1 Absolute Nucleated RBC 0.00 Nucleated RBC % 0.0 Sodium 138 Potassium 3.6 Chloride 104 Carbon Dioxide 25 Anion Gap 9.0 BUN 24 H Creatinine 0.8 Estimated GFR (MDRD) 68 L Glucose 136 H Calcium 9.3 Total Bilirubin 0.4 AST 25 ALT 24 Alkaline Phosphatase 55 Troponin I High Sens 35.6 H* Total Protein 7.3 Albumin 4.1 Globulin 3.2 Albumin/Globulin Ratio 1.3 Lipase 31 PD MEDICAL DECISION MAKING - ED course ED course: d/w Dr. Valdez for observation given elevated blood pressure and troponin with ekg showing anterolateral ischemic changes. no prior ekg available. patient amenable to stay. Departure - Departure Disposition: ED Place in Observation Clinical Impression: Chest pain Qualifiers: Chest pain type: other chest pain Qualified Code(s): R07.89 - Other chest pain Hypertension Qualifiers: Hypertension type: essential hypertension Qualified Code(s): I10 - Essential (primary) hypertension Condition: Stable Discharge Date/Time: 08/04/20 23:30
[2020-08-04] MEDS ORDERED: LACTATED RINGERS 1,000 ML IV SCH (23:00)
[2020-08-04] MEDS ORDERED: MAG HYDROX/AL HYDROX/SIMETH 30 ML UDC PO PRN (23:12)
[2020-08-04] MEDS ORDERED: LORazepam 0.5 MG TABLET PO STA (23:13)
[2020-08-04] MEDS ORDERED: METOPROLOL TARTRATE 25 MG TABLET PO SCH (23:45)
[2020-08-05 00:06] LABS: B. PARAPERTUSSIS- RESP PCR PAN NOT DETECTED; B. PERTUSSIS- RESP PCR PANEL NOT DETECTED; C. PNEUMONIAE- RESP PCR PANEL NOT DETECTED; CORONAVIRUS 229E-RESP PCR NOT DETECTED; CORONAVIRUS HKU1-RESP PCR NOT DETECTED; CORONAVIRUS NL63-RESP PCR NOT DETECTED; CORONAVIRUS OC43-RESP PCR NOT DETECTED; HUMAN METAPNEUMOVIRUS NOT DETECTED; INFLUENZA A- RESP PCR PANEL NOT DETECTED; INFLUENZA B - RESP PCR PANEL NOT DETECTED; M. PNEUMONIAE- RESP PCR PANEL NOT DETECTED; PARAINFLUENZA VIRUS 1 NOT DETECTED; PARAINFLUENZA VIRUS 2 NOT DETECTED; PARAINFLUENZA VIRUS 3 NOT DETECTED; PARAINFLUENZA VIRUS 4 NOT DETECTED; RHINOVIRUS/ENTEROVIRUS NOT DETECTED; RSV- RESP PCR PANEL NOT DETECTED; SARS-CoV-2 -RESP PCR PANEL NOT DETECTED
[2020-08-05] MEDS: SODIUM CHLORIDE FLUSH 0.9% 10 ML SYRINGE IVP SCH ×4 (00:18→23:49)
[2020-08-05] MEDS ORDERED: ATORVASTATIN 40 MG TABLET PO SCH (00:45)
[2020-08-05] MEDS: ATORVASTATIN 40 MG TABLET PO SCH ×2 (01:07→21:23)
[2020-08-05] MEDS: ENOXAPARIN 60 MG/0.6 ML SYRINGE SUBQ SCH ×3 (01:08→21:24)
--- NOTE | 2020-08-05 07:40 | PROVIDER PROGRESS NOTE ---
Assessment/Plan - Problem List (1) NSTEMI (non-ST elevated myocardial infarction) Assessment/Plan: 89-year-old female with history of hypertension who presented with central chest burning that radiated straight through to her back for the report was improvement with antacids and worse with food. Symptoms started the day before presentation. She presented to the ED because the symptoms were worse than pr ior. She denied dyspnea, nausea, palpitations, jaw pain or arm pain. Troponin trended thus: 35.6 > 155 > 240.9 Will continue trending troponin until it trends down. Patient was switched to inpatient today. She was started on Lovenox 60 mg subcu twice daily. She received a full dose of aspirin 325 mg p.o. once yesterday. Currently on aspirin 81 mg p.o. daily. Atorvastatin 80 mg p.o. every night Metoprolol tartrate 50 mg p.o. twice daily. We will do a nuclear stress test and obtain a 2D echocardiogram on 08/07/20 (2) Hypertension Assessment/Plan: Systolic blood pressure at time of admission was as high as 222. Patient was initially started on metoprolol tartrate 25 mg p.o. twice daily. This has been increased to metoprolol tartrate 50 mg p.o. twice daily. - Current Meds Current Meds: Current Medications Generic Name Dose Route Start Last Admin Trade Name Freq PRN Reason Stop Dose Admin Atorvastatin Calcium 80 mg 08/05/20 00:45 08/05/20 01:07 Atorvastatin 40 Mg Tablet PO 80 mg QPM KESHA Administration Enoxaparin Sodium 60 mg 08/05/20 01:00 08/05/20 01:08 Enoxaparin 60 Mg/0.6 Ml Syringe SUBQ 60 mg BID KESHA Administration Lactated Ringer's 1,000 mls @ 100 mls/hr 08/04/20 23:00 08/04/20 23:12 Lr IV 08/05/20 08:59 100 mls/hr .Q10H KESHA Administration Metoprolol Tartrate 25 mg 08/04/20 23:45 08/05/20 00:17 Metoprolol Tartrate 25 Mg Tablet PO 25 mg BID KESHA Administration Sodium Chloride 10 ml 08/05/20 01:00 08/05/20 00:18 Sodium Chloride Flush 0.9% 10 Ml Syringe IVP Not Given 0100,0900,1700 KESHA - Lab Result Fish Bone Diagrams: 08/04/20 20:51 08/04/20 20:51 - Additional Planning My Orders: My Active Orders 08/05/20 07:34 Admit \ Transfer \ Status [RC] .ONCE 08/05/20 09:00 Metoprolol Tartrate [Lopressor] 50 mg PO BID Subjective - Subjective Patient Reports: Other (Patient was resting comfortably in bed at time of exam. She denied chest pain, dyspnea, abdominal pain, nausea, vomiting, dizziness. She asked if she could go home today. After further discussion about why she should stay for further treatment she expressed understanding but was very tearful.) Objective Vital Signs: Vital Signs - 24 hr 08/04/20 08/04/20 08/04/20 20:15 21:55 23:03 Temperature 36.5 C 36.2 C L Heart Rate 85 71 64 Heart Rate [ Brachial] Respiratory 16 16 16 Rate Blood Pressure 174/85 H 203/77 H 221/72 H Blood Pressure [Right Brachial artery] O2 Saturation 99 100 100 08/05/20 08/05/20 08/05/20 00:00 00:05 00:10 Temperature Heart Rate Heart Rate [ 69 66 69 Brachial] Respiratory 17 17 16 Rate Blood Pressure Blood Pressure 222/73 H 152/125 H 180/69 H [Right Brachial artery] O2 Saturation 100 100 99 08/05/20 08/05/20 00:17 05:00 Temperature 36.5 C Heart Rate Heart Rate [ 62 Brachial] Respiratory 16 Rate Blood Pressure 183/80 H Blood Pressure 164/58 H [Right Brachial artery] O2 Saturation 95 Oxygen O2 Source Room air I&O (Last 24 Hrs): Intake and Output Totals x24h 08/03/20 08/04/20 08/05/20 23:59 23:59 23:59 Output Total 250 500 Balance -250 -500 General: Alert, Oriented x3, Cooperative HEENT: Atraumatic, PERRLA, EOMI Neck: Supple, No JVD Neuro: Alert, Non Focal, Oriented Times 3 Cardiovascular: Regular rate, No murmurs Respiratory: Chest non-tender, No respiratory distress, Breath sounds nml Abdomen: Normal bowel sounds, Soft, No tenderness Extremities: No clubbing, No cyanosis, No edema Skin: No rashes, No breakdown - Results Results: Laboratory Results WBC 5.2 x10^3/uL (4.8-10.8) 08/04/20 20:51 RBC 4.76 10^6/uL (4.20-5.40) 08/04/20 20:51 Hgb 13.7 g/dL (12.0-16.0) 08/04/20 20:51 Hct 41.9 % (37.0-47.0) 08/04/20 20:51 MCV 88.0 fL (81.0-99.0) 08/04/20 20:51 MCH 28.8 pg (27.0-31.0) 08/04/20 20:51 MCHC 32.7 g/dL (32.0-36.0) 08/04/20 20:51 RDW 13.3 % (12.0-15.0) 08/04/20 20:51 Plt Count 284 10^3/uL (130-450) 08/04/20 20:51 MPV 9.5 fL (7.9-10.8) 08/04/20 20:51 Neut # (Auto) 2.5 10^3/uL (1.5-6.6) 08/04/20 20:51 Lymph # (Auto) 1.9 10^3/uL (1.5-3.5) 08/04/20 20:51 [place] # (Auto) 0.5 10^3/uL (0.0-1.0) 08/04/20 20:51 Eos # (Auto) 0.1 10^3/uL (0.0-0.7) 08/04/20 20:51 Baso # (Auto) 0.1 10^3/uL (0.0-0.1) 08/04/20 20:51 Absolute Nucleated RBC 0.00 x10^3/uL 08/04/20 20:51 Nucleated RBC % 0.0 /100WBC 08/04/20 20:51 Sodium 138 mmol/L (135-145) 08/04/20 20:51 Potassium 3.6 mmol/L (3.5-5.0) 08/04/20 20:51 Chloride 104 mmol/L (101-111) 08/04/20 20:51 Carbon Dioxide 25 mmol/L (21-32) 08/04/20 20:51 Anion Gap 9.0 (6-13) 08/04/20 20:51 BUN 24 mg/dL (6-20) H 08/04/20 20:51 Creatinine 0.8 mg/dL (0.4-1.0) 08/04/20 20:51 Estimated GFR (MDRD) 68 (>89) L 08/04/20 20:51 Glucose 136 mg/dL (70-100) H 08/04/20 20:51 Calcium 9.3 mg/dL (8.5-10.3) 08/04/20 20:51 Total Bilirubin 0.4 mg/dL (0.2-1.0) 08/04/20 20:51 AST 25 IU/L (10-42) 08/04/20 20:51 ALT 24 IU/L (10-60) 08/04/20 20:51 Alkaline Phosphatase 55 IU/L (42-121) 08/04/20 20:51 Troponin I High Sens 240.9 ng/L (2.3-14.8) H* 08/05/20 05:25 Total Protein 7.3 g/dL (6.7-8.2) 08/04/20 20:51 Albumin 4.1 g/dL (3.2-5.5) 08/04/20 20:51 Globulin 3.2 g/dL (2.1-4.2) 08/04/20 20:51 Albumin/Globulin Ratio 1.3 (1.0-2.2) 08/04/20 20:51 Lipase 31 U/L (22-51) 08/04/20 20:51 Nasal Adenovirus (PCR) NOT DETECTED 08/04/20 22:55 Nasal B. parapertussis DNA (PCR) NOT DETECTED 08/04/20 22:55 Nasal Coronavir 229E PCR NOT DETECTED 08/04/20 22:55 Nasal Coronavir HKU1 PCR NOT DETECTED 08/04/20 22:55 Nasal Coronavir NL63 PCR NOT DETECTED 08/04/20 22:55 Nasal Coronavir OC43 PCR NOT DETECTED 08/04/20 22:55 Nasal Enterovir/Rhinovir PCR NOT DETECTED 08/04/20 22:55 Nasal Influenza B PCR NOT DETECTED 08/04/20 22:55 Nasal Influenza A PCR NOT DETECTED 08/04/20 22:55 Nasal Parainfluen 1 PCR NOT DETECTED 08/04/20 22:55 Nasal Parainfluen 2 PCR NOT DETECTED 08/04/20 22:55 Nasal Parainfluen 3 PCR NOT DETECTED 08/04/20 22:55 Nasal Parainfluen 4 PCR NOT DETECTED 08/04/20 22:55 Nasal RSV (PCR) NOT DETECTED 08/04/20 22:55 Nasal B.pertussis DNA PCR NOT DETECTED 08/04/20 22:55 Nasal C.pneumoniae (PCR) NOT DETECTED 08/04/20 22:55 Kareem Human Metapneumo PCR NOT DETECTED 08/04/20 22:55 Nasal M.pneumoniae (PCR) NOT DETECTED 08/04/20 22:55 Nasal SARS-CoV-2 (PCR) NOT DETECTED 08/04/20 22:55 - Procedures Procedures: Procedures REPLACEMENT OF LEFT LENS WITH SYNTH SUB, PERC APPROACH (01/29/18) REPLACEMENT OF RIGHT LENS WITH SYNTH SUB, PERC APPROACH (10/30/17) ABX Reporting Has patient been on IV antibiotics over the past 48 hours?: No
[2020-08-05] MEDS: ASPIRIN EC 81 MG TABLET PO SCH (08:31)
[2020-08-05] MEDS: METOPROLOL TARTRATE 50 MG TABLET PO SCH ×2 (08:31→21:24)
--- NOTE | 2020-08-05 11:49 | PHARMACY PROGRESS NOTE ---
- Best Possible Medication History Admit Date and Time: 08/05/20 0734 Processed by: Pharmacy Medication History completed: Yes Patient Interview: Completed Secondary Source(s): Physician records As the person ultimately responsible for medication therapy, providers are able to order a medication from an existing home medication list in [facility] via the "Reconcile Routine" prior to Confirmation of that medication by field support specialist. Such practice is discouraged except when the physician, in their clinical judgment, deems that a medical need exists for a medication without regard to previous use.
[2020-08-05] MEDS ORDERED: NITROGLYCERIN SL 0.4 MG TABLET SL ONE (18:08)
[2020-08-05] MEDS: NITROGLYCERIN SL 0.4 MG TABLET SL PRN (18:10)
[2020-08-06 05:26] LABS: BASOPHILS # (AUTO) 0.1 10^3/uL (0.0-0.1); BASOPHILS % (AUTO) 1.1 %; EOSINOPHILS # (AUTO) 0.2 10^3/uL (0.0-0.7); EOSINOPHILS % (AUTO) 2.2 %; HCT - HEMATOCRIT 39.3 % (37.0-47.0); HGB - HEMOGLOBIN 12.7 g/dL (12.0-16.0); LYMPHOCYTES # (AUTO) 3.1 10^3/uL (1.5-3.5); LYMPHOCYTES % (AUTO) 43.2 %; MEAN CORPUSCULAR HEMOGLOBIN 28.7 pg (27.0-31.0); MEAN CORPUSCULAR HGB CONC 32.3 g/dL (32.0-36.0); MEAN CORPUSCULAR VOLUME 88.7 fL (81.0-99.0); MEAN PLATELET VOLUME 9.7 fL (7.9-10.8); MONOCYTES # (AUTO) 0.8 10^3/uL (0.0-1.0); MONOCYTES % (AUTO) 11.4 %; PLT - PLATELET COUNT 269 10^3/uL (130-450); RED BLOOD COUNT 4.43 10^6/uL (4.20-5.40); RED CELL DISTRIBUTION WIDTH 13.2 % (12.0-15.0); WHITE BLOOD COUNT 7.2 x10^3/uL (4.8-10.8)
[2020-08-06 05:30] LABS: CALCIUM 8.7 mg/dL (8.5-10.3); CREATININE 0.8 mg/dL (0.4-1.0)
--- NOTE | 2020-08-06 07:26 | PROVIDER PROGRESS NOTE ---
Assessment/Plan - Problem List (1) NSTEMI (non-ST elevated myocardial infarction) Assessment/Plan: 89-year-old female with history of hypertension who presented with central chest burning that radiated straight through to her back for the report was improvement with antacids and worse with food. Symptoms started the day before presentation. She presented to the ED because the symptoms were worse than pr ior. She denied dyspnea, nausea, palpitations, jaw pain or arm pain. Troponin trended thus: 35.6 > 155 > 240.9 > 188.7 > 184.9 Will continue trending troponin until it trends down. Patient was switched to inpatient today. She was started on Lovenox 60 mg subcu twice daily. She received a full dose of aspirin 325 mg p.o. once yesterday. Currently on aspirin 81 mg p.o. daily. Atorvastatin 80 mg p.o. every night Metoprolol tartrate 50 mg p.o. twice daily. We will do a nuclear stress test and obtain a 2D echocardiogram on 08/07/20 (2) Hypertension Assessment/Plan: Systolic blood pressure at time of admission was as high as 222. Patient was initially started on metoprolol tartrate 25 mg p.o. twice daily. This has been increased to metoprolol tartrate 50 mg p.o. twice daily. Hydralazine 10 mg IV every 4 hours as needed for systolic blood pressure greater than 160 ordered for better control. - Current Meds Current Meds: Current Medications Generic Name Dose Route Start Last Admin Trade Name Freq PRN Reason Stop Dose Admin Al Hydroxide/Mg Hydroxide 30 ml 08/04/20 23:12 08/05/20 17:33 Mag Hydrox/Al Hydrox/Simeth 30 Ml Udc PO 30 ml Q4HR PRN Administration INDIGESTION Aspirin 81 mg 08/05/20 09:00 08/05/20 08:31 Aspirin Ec 81 Mg Tablet PO 81 mg DAILY KESHA Administration Atorvastatin Calcium 80 mg 08/05/20 00:45 08/05/20 21:23 Atorvastatin 40 Mg Tablet PO 80 mg QPM KESHA Administration Enoxaparin Sodium 60 mg 08/05/20 01:00 08/05/20 21:24 Enoxaparin 60 Mg/0.6 Ml Syringe SUBQ 60 mg BID KESHA Administration Metoprolol Tartrate 50 mg 08/05/20 09:00 08/05/20 21:24 Metoprolol Tartrate 50 Mg Tablet PO 50 mg BID KESHA Administration Nitroglycerin 0.4 mg 08/05/20 18:03 08/05/20 18:10 Nitroglycerin Sl 0.4 Mg Tablet SL 0.4 mg Q5MIN PRN Administration Chest Pain Sodium Chloride 10 ml 08/05/20 01:00 08/05/20 23:49 Sodium Chloride Flush 0.9% 10 Ml Syringe IVP 10 ml 0100,0900,1700 KESHA Administration - Lab Result Fish Bone Diagrams: 08/06/20 04:55 08/06/20 04:55 - Additional Planning My Orders: My Active Orders 08/05/20 09:00 Metoprolol Tartrate [Lopressor] 50 mg PO BID 08/05/20 18:03 Nitroglycerin [Nitrostat] 0.4 mg SL Q5MIN PRN 08/06/20 07:25 hydrALAZINE INJ [Apresoline Inj] 10 mg IVP Q4H PRN 08/07/20 00:01 NPO except Meds at Midnight [DIET] 08/07/20 05:00 BMP - BASIC METABOLIC PANEL [CHEM] DAILYLAB CBC - COMP BLD CT W/AUTO DIFF [HEME] DAILYLAB 08/07/20 08:00 Echo Transthoracic Complete [ECHO] Routine 08/07/20 10:00 Stress Test Prep [RC] .ONCE Myocardial Perfusion STR/RST [NM] Routine 08/08/20 05:00 BMP - BASIC METABOLIC PANEL [CHEM] DAILYLAB CBC - COMP BLD CT W/AUTO DIFF [HEME] DAILYLAB 08/09/20 05:00 BMP - BASIC METABOLIC PANEL [CHEM] DAILYLAB CBC - COMP BLD CT W/AUTO DIFF [HEME] DAILYLAB Subjective - Subjective Patient Reports: Other (Patient was resting comfortably in bed. She denied chest pain, dyspnea, abdominal pain, nausea, vomiting, fever or chills. However she had chest pain last evening which responded favorably to nitroglycerin SL.) Objective Vital Signs: Vital Signs - 24 hr 08/05/20 08/05/20 08/05/20 08:15 11:34 15:55 Temperature 37.0 C 36.8 C 36.8 C Heart Rate [ 78 56 L 55 L Brachial] Respiratory 16 16 18 Rate Blood Pressure Blood Pressure 167/56 H 153/60 H 158/52 H [Right Brachial artery] O2 Saturation 97 97 97 08/05/20 08/05/20 08/05/20 20:21 20:23 21:24 Temperature 36.6 C Heart Rate [ 77 Brachial] Respiratory 20 Rate Blood Pressure 154/54 H Blood Pressure 192/63 H 195/60 H [Right Brachial artery] O2 Saturation 99 08/05/20 08/05/20 08/06/20 21:30 23:48 04:58 Temperature 36.2 C L Heart Rate [ 58 L 67 Brachial] Respiratory 20 20 Rate Blood Pressure Blood Pressure 154/54 H 150/51 H 167/70 H [Right Brachial artery] O2 Saturation 95 98 Oxygen O2 Source Room air I&O (Last 24 Hrs): Intake and Output Totals x24h 08/04/20 08/05/20 08/06/20 23:59 23:59 23:59 Intake Total 2100 Output Total 250 1500 300 Balance -250 600 -300 General: Alert, Oriented x3, Cooperative, No acute distress HEENT: PERRLA, EOMI Neck: Supple, No JVD Neuro: Alert, Non Focal, Oriented Times 3 Cardiovascular: Regular rate, No murmurs Respiratory: Chest non-tender, No respiratory distress, Breath sounds nml Abdomen: Normal bowel sounds, Soft, No tenderness Extremities: No clubbing, No cyanosis, No edema Skin: No rashes, No breakdown - Results Results: Laboratory Results WBC 7.2 x10^3/uL (4.8-10.8) 08/06/20 04:55 RBC 4.43 10^6/uL (4.20-5.40) 08/06/20 04:55 Hgb 12.7 g/dL (12.0-16.0) 08/06/20 04:55 Hct 39.3 % (37.0-47.0) 08/06/20 04:55 MCV 88.7 fL (81.0-99.0) 08/06/20 04:55 MCH 28.7 pg (27.0-31.0) 08/06/20 04:55 MCHC 32.3 g/dL (32.0-36.0) 08/06/20 04:55 RDW 13.2 % (12.0-15.0) 08/06/20 04:55 Plt Count 269 10^3/uL (130-450) 08/06/20 04:55 MPV 9.7 fL (7.9-10.8) 08/06/20 04:55 Neut # (Auto) 3.0 10^3/uL (1.5-6.6) 08/06/20 04:55 Lymph # (Auto) 3.1 10^3/uL (1.5-3.5) 08/06/20 04:55 [place] # (Auto) 0.8 10^3/uL (0.0-1.0) 08/06/20 04:55 Eos # (Auto) 0.2 10^3/uL (0.0-0.7) 08/06/20 04:55 Baso # (Auto) 0.1 10^3/uL (0.0-0.1) 08/06/20 04:55 Absolute Nucleated RBC 0.00 x10^3/uL 08/06/20 04:55 Nucleated RBC % 0.0 /100WBC 08/06/20 04:55 Sodium 137 mmol/L (135-145) 08/06/20 04:55 Potassium 4.0 mmol/L (3.5-5.0) 08/06/20 04:55 Chloride 103 mmol/L (101-111) 08/06/20 04:55 Carbon Dioxide 26 mmol/L (21-32) 08/06/20 04:55 Anion Gap 8.0 (6-13) 08/06/20 04:55 BUN 21 mg/dL (6-20) H 08/06/20 04:55 Creatinine 0.8 mg/dL (0.4-1.0) 08/06/20 04:55 Estimated GFR (MDRD) 68 (>89) L 08/06/20 04:55 Glucose 105 mg/dL (70-100) H 08/06/20 04:55 Calcium 8.7 mg/dL (8.5-10.3) 08/06/20 04:55 Total Bilirubin 0.4 mg/dL (0.2-1.0) 08/04/20 20:51 AST 25 IU/L (10-42) 08/04/20 20:51 ALT 24 IU/L (10-60) 08/04/20 20:51 Alkaline Phosphatase 55 IU/L (42-121) 08/04/20 20:51 Troponin I High Sens 184.9 ng/L (2.3-14.8) H* 08/05/20 19:32 Total Protein 7.3 g/dL (6.7-8.2) 08/04/20 20:51 Albumin 4.1 g/dL (3.2-5.5) 08/04/20 20:51 Globulin 3.2 g/dL (2.1-4.2) 08/04/20 20:51 Albumin/Globulin Ratio 1.3 (1.0-2.2) 08/04/20 20:51 Lipase 31 U/L (22-51) 08/04/20 20:51 Nasal Adenovirus (PCR) NOT DETECTED 08/04/20 22:55 Nasal B. parapertussis DNA (PCR) NOT DETECTED 08/04/20 22:55 Nasal Coronavir 229E PCR NOT DETECTED 08/04/20 22:55 Nasal Coronavir HKU1 PCR NOT DETECTED 08/04/20 22:55 Nasal Coronavir NL63 PCR NOT DETECTED 08/04/20 22:55 Nasal Coronavir OC43 PCR NOT DETECTED 08/04/20 22:55 Nasal Enterovir/Rhinovir PCR NOT DETECTED 08/04/20 22:55 Nasal Influenza B PCR NOT DETECTED 08/04/20 22:55 Nasal Influenza A PCR NOT DETECTED 08/04/20 22:55 Nasal Parainfluen 1 PCR NOT DETECTED 08/04/20 22:55 Nasal Parainfluen 2 PCR NOT DETECTED 08/04/20 22:55 Nasal Parainfluen 3 PCR NOT DETECTED 08/04/20 22:55 Nasal Parainfluen 4 PCR NOT DETECTED 08/04/20 22:55 Nasal RSV (PCR) NOT DETECTED 08/04/20 22:55 Nasal B.pertussis DNA PCR NOT DETECTED 08/04/20 22:55 Nasal C.pneumoniae (PCR) NOT DETECTED 08/04/20 22:55 [place] Human Metapneumo PCR NOT DETECTED 08/04/20 22:55 Nasal M.pneumoniae (PCR) NOT DETECTED 08/04/20 22:55 Nasal SARS-CoV-2 (PCR) NOT DETECTED 08/04/20 22:55 - Procedures Procedures: Procedures REPLACEMENT OF LEFT LENS WITH SYNTH SUB, PERC APPROACH (01/29/18) REPLACEMENT OF RIGHT LENS WITH SYNTH SUB, PERC APPROACH (10/30/17) ABX Reporting Has patient been on IV antibiotics over the past 48 hours?: No
[2020-08-06] MEDS: METOPROLOL TARTRATE 50 MG TABLET PO SCH ×2 (08:51→21:44)
[2020-08-06] MEDS: ASPIRIN EC 81 MG TABLET PO SCH (08:51)
[2020-08-06] MEDS: ENOXAPARIN 60 MG/0.6 ML SYRINGE SUBQ SCH ×2 (08:52→21:46)
[2020-08-06] MEDS: SODIUM CHLORIDE FLUSH 0.9% 10 ML SYRINGE IVP SCH ×3 (08:52→23:27)
[2020-08-06] MEDS: hydrALAZINE INJ 20 MG/ML VIAL IVP PRN (17:15)
[2020-08-06] MEDS: NITROGLYCERIN SL 0.4 MG TABLET SL PRN ×3 (17:36→19:02)
[2020-08-06] MEDS: NITROGLYCERIN 2% PASTE TOP SCH ×2 (19:27→21:36)
[2020-08-06] MEDS: ATORVASTATIN 40 MG TABLET PO SCH (21:45)
[2020-08-07 05:45] LABS: BASOPHILS # (AUTO) 0.1 10^3/uL (0.0-0.1); BASOPHILS % (AUTO) 0.9 %; EOSINOPHILS # (AUTO) 0.2 10^3/uL (0.0-0.7); EOSINOPHILS % (AUTO) 2.2 %; HCT - HEMATOCRIT 39.4 % (37.0-47.0); HGB - HEMOGLOBIN 13.3 g/dL (12.0-16.0); LYMPHOCYTES # (AUTO) 2.4 10^3/uL (1.5-3.5); LYMPHOCYTES % (AUTO) 35.4 %; MEAN CORPUSCULAR HEMOGLOBIN 29.5 pg (27.0-31.0); MEAN CORPUSCULAR HGB CONC 33.8 g/dL (32.0-36.0); MEAN CORPUSCULAR VOLUME 87.4 fL (81.0-99.0); MEAN PLATELET VOLUME 9.9 fL (7.9-10.8); MONOCYTES # (AUTO) 0.8 10^3/uL (0.0-1.0); MONOCYTES % (AUTO) 12.1 %; NEUTROPHILS # (AUTO) 3.4 10^3/uL (1.5-6.6); NEUTROPHILS % (AUTO) 49.1 %; PLT - PLATELET COUNT 247 10^3/uL (130-450); RED BLOOD COUNT 4.51 10^6/uL (4.20-5.40); RED CELL DISTRIBUTION WIDTH 13.3 % (12.0-15.0); WHITE BLOOD COUNT 6.9 x10^3/uL (4.8-10.8)
[2020-08-07 05:55] LABS: CALCIUM 8.9 mg/dL (8.5-10.3); CREATININE 0.7 mg/dL (0.4-1.0); POTASSIUM 3.6 mmol/L (3.5-5.0)
[2020-08-07] MEDS: NITROGLYCERIN SL 0.4 MG TABLET SL PRN (06:11)
[2020-08-07 06:14] LABS: CHOL/HDL RATIO 3.6 (<4.4); CHOLESTEROL 197 mg/dL; HDL CHOLESTEROL 54 mg/dL; LDL CHOLESTEROL,CALCULATED 117 mg/dL; LDL/HDL RATIO 2.2 (<4.4); TRIGLYCERIDES 132 mg/dL; VLDL CHOLESTEROL 26 mg/dL
--- NOTE | 2020-08-07 07:50 | Discharge Plan ---
Discharge Plan Problem Reviewed?: Yes Disposition: 02 Transfer Acute Care Hosp Condition: Stable Diet: Cardiac Activity Restrictions: Activity as Tolerated Health Concerns: You presented with chest pain for which work-up included your troponin levels being checked. This became significantly elevated to as high as 289. Consequently you were diagnosed with NSTEMI You received a full dose of aspirin and you were started on Lovenox 60 mg subcu twice daily. Baby aspirin was continued daily after that. He also received atorvastatin. When you presented to the hospital your systolic blood pressure was as high as 230s. Consequently you were started on metoprolol 25 mg p.o. twice daily. This was subsequently increased to 50 mg p.o. twice daily. For better control hydralazine was added as needed. Over the past 2 nights you have been experiencing chest pain which responded to nitroglycerin sublingual. Consequently Nitropaste was applied. The initial plan had been to do stress test however with your ongoing chest pain the stress test was canceled. Your case was presented to Dr. Dyson a client representative at [facility] in [place] who accepted to evaluate you over at [facility] and do a cardiac cath if indicated. Consequently you are being transferred to [facility]. This plan was explained to you and you are in agreement. Plan of Treatment: You presented with chest pain for which work-up included your troponin levels being checked. This became significantly elevated to as high as 289. Consequently you were diagnosed with NSTEMI You received a full dose of aspirin and you were started on Lovenox 60 mg subcu twice daily. Baby aspirin was continued daily after that. He also received atorvastatin. When you presented to the hospital your systolic blood pressure was as high as 230s. Consequently you were started on metoprolol 25 mg p.o. twice daily. This was subsequently increased to 50 mg p.o. twice daily. For better control hydralazine was added as needed. Over the past 2 nights you have been experiencing chest pain which responded to nitroglycerin sublingual. Consequently Nitropaste was applied. The initial plan had been to do stress test however with your ongoing chest pain the stress test was canceled. Your case was presented to Dr. Dyson a client representative at [facility] in [place] who accepted to evaluate you over at [facility] and do a cardiac cath if indicated. Consequently you are being transferred to [facility]. This plan was explained to you and you are in agreement. Care Goals: You presented with chest pain for which work-up included your troponin levels being checked. This became significantly elevated to as high as 289. Consequently you were diagnosed with NSTEMI You received a full dose of aspirin and you were started on Lovenox 60 mg subcu twice daily. Baby aspirin was continued daily after that. He also received atorvastatin. When you presented to the hospital your systolic blood pressure was as high as 230s. Consequently you were started on metoprolol 25 mg p.o. twice daily. This was subsequently increased to 50 mg p.o. twice daily. For better control hydralazine was added as needed. Over the past 2 nights you have been experiencing chest pain which responded to nitroglycerin sublingual. Consequently Nitropaste was applied. The initial plan had been to do stress test however with your ongoing chest pain the stress test was canceled. Your case was presented to Dr. Dyson a client representative at [facility] in [place] who accepted to evaluate you over at [facility] and do a cardiac cath if indicated. Consequently you are being transferred to [facility]. This plan was explained to you and you are in agreement. Assessment: You presented with chest pain for which work-up included your troponin levels being checked. This became significantly elevated to as high as 289. Conseque ntly you were diagnosed with NSTEMI You received a full dose of aspirin and you were started on Lovenox 60 mg subcu twice daily. Baby aspirin was continued daily after that. He also received atorvastatin. When you presented to the hospital your systolic blood pressure was as high as 230s. Consequently you were started on metoprolol 25 mg p.o. twice daily. This was subsequently increased to 50 mg p.o. twice daily. For better control hydralazine was added as needed. Over the past 2 nights you have been experiencing chest pain which responded to nitroglycerin sublingual. Consequently Nitropaste was applied. The initial plan had been to do stress test however with your ongoing chest pain the stress test was canceled. Your case was presented to Dr. Dyson a client representative at [facility] in [place] who accepted to evaluate you over at [facility] and do a cardiac cath if indicated. Consequently you are being transferred to [facility]. This plan was explained to you and you are in agreement. No Smoking: If you smoke, Please STOP! Call for help. Follow-up with: Javier Vasquez DO [Primary Care Provider] -
--- NOTE | 2020-08-07 07:50 | DISCHARGE SUMMARY ---
Discharge Summary Admit Date: 08/04/20 Discharge Date: 08/07/20 Discharging Provider: Jhoan Bunn Primary Care Provider: Lesly Vasquez Code Status: Attempt Resuscitation Condition at Discharge: Stable Discharge Disposition: 02 Transfer Acute Care Hosp Discharge Facility Name: [facility] - DIAGNOSES Admission Diagnoses: Chest pain Elevated troponin Abnormal EKG Hypertension Discharge Diagnoses with Status of Each Condition: NSTEMI: Patient transferred to [facility] for a cardiac cath. Hypertension - HPI History of Present Illness: Per HPI: 89-year-old female whose coronary artery risk factors include age, hypertension, that presents with central chest burning that radiates straight through to her back. Better with antacids and worse with food. Started yesterday. This is a more severe manifestation of symptoms that she has been having off and on for the last 3 to 4 years. It still has been mild, and only lasted an hour or 2. This is the first time is lasted this long and has been so severe. Anytime she tried to eat anything, even drinking water, the burning was severe. Prilosec did not help. But at acids [id number] did help. She is a non-smoker, does not take nonsteroidals on a regular basis. There is no shortness of breath, nausea, palpitations, jaw pain, arm pain with this. She thinks, she is not sure, that she may have had ulcers 20 or 30 years ago. She cannot remember.She has an occasional abdominal bloating, but no change in bowel habits. There is never been blood in her stool. She has never vomited blood. Temperature was 36.5. Pulse was 71. Blood pressure went from 174 initially and was 203 systolic after an hour and a half. Respirations were 16 and unlabored and she was 99% to 100% on room air. Physical exam was negative. Her initial troponin is mildly elevated in the low 30s. Unfortunately she has no previous EKGs to compare to and her current EKG is abnormal. As such she is being placed in observation for monitoring her cardiac enzymes. In the ER she was treated with aspirin,. No other medications were given. No antacids, no proton pump inhibitor. Chest x-ray without acute cardiopulmonary finding. Patient's Troponin trended thus: 35.6 > 155 > 240.9 > 188.7 > 184.9 She was placed on Lovenox 60 mg subcu twice daily. She received a full dose of aspirin 325 mg once. Aspirin 81 mg p.o. daily was ordered subsequently. She was started on atorvastatin 80 mg p.o. nightly, metoprolol 25 mg p.o. twice daily which was subsequently increased to 50 mg p.o. twice daily. For better control of her blood pressure hydralazine 10 mg IV every 4 hours was added to her medications. Plan had been to do a 2D echocardiogram and stress test on 08/07/2020 however patient experienced chest pain intermittently on 08/05/20 and 08/06/2020 which Sided with sublingual nitro glycerin. As a result 1/2 inch square nitroglycerin paste was applied, a stress test was canceled. I reached out to Dr. Dyson judo instructor on-call at [facility] on 08/07/20. After presentation of the case she was agreeable to see the patient in consult and do a cardiac cath as indicated. The patient was admitted to the hospitalist team at [facility]. - ALLERGIES Allergies/Adverse Reactions: Allergies Allergy/AdvReac Type Severity Reaction Status Date / Time Sulfa (Sulfonamide Allergy Rash Verified 08/04/20 20:19 Antibiotics) hydrocodone AdvReac Nausea Verified 08/04/20 20:19 - MEDICATIONS Home Medications: Ambulatory Orders Medication Instructions Recorded Confirmed Ascorbic Acid [Vitamin C] 500 mg PO DAILY 10/01/17 08/05/20 Losartan Potassium 25 mg PO DAILY 10/01/17 08/05/20 Multivitamin [Multiple Vitamins] 1 each PO DAILY 10/01/17 08/05/20 - PHYSICAL EXAM AT DISCHARGE General Appearance: positive: No acute distress, Alert Eyes Bilateral: positive: PERRL, EOMI ENT: positive: No signs of dehydration Neck: positive: No JVD, Trachea midline Respiratory: positive: Chest non-tender, No respiratory distress, Breath sounds nml. negative: Wheezes, Rales Cardiovascular: positive: Regular rate & rhythm, No murmur, No gallop Abdomen: positive: Non-tender, No organomegaly, Nml bowel sounds, No distention. negative: Guarding, Rebound Back: positive: Nml inspection Skin: positive: Color nml, No rash, Warm, Dry Extremities: positive: Non-tender, Full ROM, Nml appearance Neurologic/Psychiatric: positive: Oriented x3, Mood/affect nml - LABS Result Diagrams: 08/07/20 08:01 08/07/20 05:32 - TIME SPENT Time Spent in Discharge (Minutes): 30
[2020-08-07] MEDS ORDERED: HEPARIN 25000UNITS/500ML (D5W) 25,000 UNIT/500 ML BAG IV SCH (08:00)
[2020-08-07 08:06] LABS: HCT - HEMATOCRIT 43.5 % (37.0-47.0); HGB - HEMOGLOBIN 14.2 g/dL (12.0-16.0); MEAN CORPUSCULAR HEMOGLOBIN 29.2 pg (27.0-31.0); MEAN CORPUSCULAR HGB CONC 32.6 g/dL (32.0-36.0); MEAN CORPUSCULAR VOLUME 89.3 fL (81.0-99.0); MEAN PLATELET VOLUME 9.6 fL (7.9-10.8); RED BLOOD COUNT 4.87 10^6/uL (4.20-5.40); RED CELL DISTRIBUTION WIDTH 13.3 % (12.0-15.0); WHITE BLOOD COUNT 7.5 x10^3/uL (4.8-10.8)
[2020-08-07] MEDS: METOPROLOL TARTRATE 50 MG TABLET PO SCH (08:52)
[2020-08-07] MEDS: ASPIRIN EC 81 MG TABLET PO SCH (08:52)
[2020-08-07] MEDS: SODIUM CHLORIDE FLUSH 0.9% 10 ML SYRINGE IVP SCH (09:30)
[2020-08-07] MEDS: NITROGLYCERIN 2% PASTE TOP SCH (09:31)
[2020-08-07] MEDS: hydrALAZINE INJ 20 MG/ML VIAL IVP PRN (10:32)
[2020-08-07 11:03] VITALS: BP 153/51
== END 2020-08-07 11:39 | disposition short-term general hospital (02) | DRG 282 ==
LOC: ED 19:59 → MS2 22:26 → OBSVTOIN 08-05 07:34
PROVIDERS: ADMIT Internal Medicine; ATTEND Internal Medicine
DX: R07.89 Other chest pain (principal); I21.4 Non-ST elevation (NSTEMI) myocardial infarction; R77.8 Other specified abnormalities of plasma proteins; R60.0 Localized edema; I10 Essential (primary) hypertension; R94.31 Abnormal electrocardiogram [ECG] [EKG]; F32.9 Major depressive disorder, single episode, unspecified; Z20.822 Contact with and (suspected) exposure to COVID-19; F41.9 Anxiety disorder, unspecified; K21.9 Gastro-esophageal reflux disease without esophagitis; Z79.899 Other long term (current) drug therapy; R53.83 Other fatigue
CPT/HCPCS: 36415; 71045; 80048; 80053; 80061; 83690; 84484; 85025; 85027; 85520; 87631; 93005; 96372; 99284; 99285; A9270; G0378; J1650; 0202U; 83721

== ENCOUNTER 2020-08-07 11:43 | Outpatient (CLI) | payer MEDICARE, OTHER | END 2020-08-07 11:44 | disposition short-term general hospital (02) | LOC: EMS 11:43 | PROVIDERS: ATTEND Internal Medicine | DX: I21.4 Non-ST elevation (NSTEMI) myocardial infarction (principal) | CPT/HCPCS: A0425; A0426 ==

== ENCOUNTER 2020-08-15 18:58 | Emergency (ER) | payer MEDICARE, OTHER ==
[2020-08-15 19:34] LABS: BASOPHILS # (AUTO) 0.1 10^3/uL (0.0-0.1); BASOPHILS % (AUTO) 1.2 %; EOSINOPHILS # (AUTO) 0.1 10^3/uL (0.0-0.7); EOSINOPHILS % (AUTO) 2.5 %; HCT - HEMATOCRIT 36.8 % (37.0-47.0); HGB - HEMOGLOBIN 12.8 g/dL (12.0-16.0); LYMPHOCYTES % (AUTO) 35.4 %; MEAN CORPUSCULAR HEMOGLOBIN 29.7 pg (27.0-31.0); MEAN CORPUSCULAR HGB CONC 34.8 g/dL (32.0-36.0); MEAN CORPUSCULAR VOLUME 85.4 fL (81.0-99.0); MEAN PLATELET VOLUME 9.7 fL (7.9-10.8); MONOCYTES # (AUTO) 0.8 10^3/uL (0.0-1.0); MONOCYTES % (AUTO) 14.9 %; NEUTROPHILS # (AUTO) 2.6 10^3/uL (1.5-6.6); NEUTROPHILS % (AUTO) 45.6 %; PLT - PLATELET COUNT 283 10^3/uL (130-450); RED BLOOD COUNT 4.31 10^6/uL (4.20-5.40); RED CELL DISTRIBUTION WIDTH 12.7 % (12.0-15.0); WHITE BLOOD COUNT 5.7 x10^3/uL (4.8-10.8)
--- NOTE | 2020-08-15 19:47 | ED Physician Documentation ---
History of Present Illness - Stated complaint Stated Complaint: BACK PX,WEAKNESS - Chief complaint Chief Complaint: Back Pain - History obtained from History obtained from: Patient - History of Present Illness Timing: Other (episodic since having coronary artery stent placed last week ([facility])) Pain level max: 6 Pain level now: 0 Improved by: no apparent ameliorating factors Worsened by: no obvious exacerbating factors - Additonal information Additional information: c/o upper back pain (between shoulder blades), episodic over past several days. She was admitted to [facility] 08/04 for chest and back pain, subsequently transferred to [facility] 08/07 where she underwent cardiac cath and had coronary artery stent placed. she has not had chest pain since the procedure, but has had this episodic upper back pain. She was advised by her manager privacy to come to ED for evaluation Review of Systems Constitutional: reports: Reviewed and negative Cardiac: reports: Reviewed and negative Respiratory: reports: Reviewed and negative GI: reports: Reviewed and negative Musculoskeletal: reports: Back pain. denies: Extremity pain, Extremity swelling Neurologic: reports: Generalized weakness. denies: Focal weakness, Numbness PD PAST MEDICAL HISTORY - Past Medical History Past Medical History: Yes Cardiovascular: Hypertension, [place] Respiratory: None Neuro: None Endocrine/Autoimmune: None GI: GERD DROP WIRE STRINGER: None : Incontinence, Frequency HEENT: None Psych: Anxiety Musculoskeletal: Osteoarthritis Derm: None - Past Surgical History Past Surgical History: Yes /DROP WIRE STRINGER: Hysterectomy Cardiovascular: Coronary stent, Cardiac catheterization HEENT: Tonsil/Adenoidectomy Derm: Skin cancer surgery - Present Medications Home Medications: Ambulatory Orders Medication Instructions Recorded Confirmed Losartan Potassium 50 mg PO DAILY 10/01/17 08/05/20 Aspirin [[place] Aspirin] 81 mg PO DAILY 08/15/20 08/15/20 - Allergies Allergies/Adverse Reactions: Allergies Allergy/AdvReac Type Severity Reaction Status Date / Time Sulfa (Sulfonamide Allergy Rash Verified 08/15/20 19:02 Antibiotics) hydrocodone AdvReac Nausea Verified 08/15/20 19:02 - Social History Does the pt smoke?: No Smoking Status: Never smoker Does the pt drink ETOH?: Yes Does the pt have substance abuse?: No - Immunizations Immunizations are current?: Yes - POLST Patient has POLST: No POLST Status: Full Code (Advanced Directive in PCP EMR) PD ED PE NORMAL - Vitals Vital signs reviewed: Yes - General General: Alert and oriented X 3, No acute distress, Well developed/nourished - HEENT HEENT: Moist mucous membranes - Neck Neck: Supple, no meningeal sign - Cardiac Cardiac: RRR, No murmur, No gallop, No rub - Respiratory Respiratory: No respiratory distress, Clear bilaterally - Abdomen Abdomen: Soft, Non tender - Back Back: No spinal TTP - Derm Derm: Normal color, Warm and dry, No rash - Extremities Extremities: No edema Results - Vitals Vitals: Vital Signs - 24 hr 08/15/20 08/15/20 08/15/20 19:03 19:36 20:07 Temperature 36.8 C Heart Rate 70 65 65 Respiratory 18 17 15 Rate Blood Pressure 154/58 H 162/65 H 168/64 H O2 Saturation 98 99 98 08/15/20 08/15/20 22:23 23:32 Temperature Heart Rate 72 73 Respiratory 18 16 Rate Blood Pressure 171/64 H 126/63 O2 Saturation 99 98 Oxygen O2 Source Room air - EKG (time done) No standard instances Rate: Rate (enter#) (62) Rhythm: NSR [place]: Normal Intervals: Normal SC QRS: Normal Ischemia: Normal ST segments Computer interpretation: Disagree with computer (I do not appreciate ST depression including lateral leads) - Labs Labs: Laboratory Tests 08/15/20 08/15/20 08/15/20 19:29 19:29 19:29 WBC 5.7 RBC 4.31 Hgb 12.8 Hct 36.8 L MCV 85.4 MCH 29.7 MCHC 34.8 RDW 12.7 Plt Count 283 MPV 9.7 Neut # (Auto) 2.6 Lymph # (Auto) 2.0 [place] # (Auto) 0.8 Eos # (Auto) 0.1 Baso # (Auto) 0.1 Absolute Nucleated RBC 0.00 Nucleated RBC % 0.0 Sodium 128 L Potassium 3.8 Chloride 91 L Carbon Dioxide 24 Anion Gap 13.0 BUN 35 H Creatinine 0.8 Estimated GFR (MDRD) 68 L Glucose 111 H Calcium 9.4 Total Bilirubin 0.4 AST 24 ALT 38 Alkaline Phosphatase 74 Troponin I High Sens 8.7 Total Protein 7.6 Albumin 4.2 Globulin 3.4 Albumin/Globulin Ratio 1.2 Lipase 42 - Rads (name of study) chest xray Radiology: Prelim report reviewed, See rad report CT chest angio Radiology: Prelim report reviewed, See rad report PD MEDICAL DECISION MAKING - ED course Complexity details: reviewed old records, reviewed results, re-evaluated patient, considered differential, d/w patient ED course: D/W Dr. Lynn, cardiology education program specialist at [facility]; he says patient can be discharged home with outpatient f/u if her symptoms have resolved (which they had by the time I initially evaluated her). On reevaluation, she says she continues to be asymptomatic; denies any chest pain and has not had recurrence of her back pain since my initial evaluation Departure - Departure Disposition: Home, Self Care Clinical Impression: Back pain Condition: Good Instructions: ED Neck Back Pain General Follow-Up: Javier Vasquez DO [Primary Care Provider] - Comments: Contact your manager privacy in the morning to arrange follow up Discharge Date/Time: 08/15/20 23:55
[2020-08-15 19:55] LABS: ALBUMIN 4.2 g/dL (3.2-5.5); ALBUMIN/GLOBULIN RATIO 1.2 (1.0-2.2); BILIRUBIN,TOTAL 0.4 mg/dL (0.2-1.0); CALCIUM 9.4 mg/dL (8.5-10.3); CREATININE 0.8 mg/dL (0.4-1.0); POTASSIUM 3.8 mmol/L (3.5-5.0); TOTAL PROTEIN 7.6 g/dL (6.7-8.2)
--- NOTE | 2020-08-15 20:56 | XRAY Report ---
PROCEDURE: Chest 1 View X-Ray INDICATIONS: Chest Pain TECHNIQUE: One view of the chest was acquired. COMPARISON: 08/04/2020 FINDINGS: Surgical changes and devices: None. Lungs and pleura: No pleural effusions or pneumothorax. Scattered subsegmental scarring/atelectasis . No acute consolidation. Mediastinum: Mediastinal contours appear normal. Heart size is normal. Bones and chest wall: No suspicious bony lesions. Overlying soft tissues appear unremarkable. IMPRESSION: No acute disease Reviewed by: Donell Lin MD on 08/15/2020 8:55 PM PDT Approved by: Donell Lin MD on 08/15/2020 8:55 PM PDT Station ID: [id number]
[2020-08-15] MEDS ORDERED: IOPAMIDOL-300 100 ML VIAL ONE (21:18)
[2020-08-15] MEDS ORDERED: IOPAMIDOL-300 100 ML VIAL IVP ONE (22:32)
[2020-08-15 23:32] VITALS: BP 126/63
--- NOTE | 2020-08-16 07:00 | CT Report ---
PROCEDURE: ANGIO CHEST W/WO INDICATIONS: upper back pain, recent cardiac cath CONTRAST: IV CONTRAST: Isovue 300 ml: 80 PO CONTRAST: *NO PO CONTRAST TECHNIQUE: After the administration of intravenous contrast, 2 mm thick sections acquired from the pulmonary api fabian to the posterior costophrenic angles. 3-dimensional maximum intensity projection (MIP) coronal a nd sagittal reformats were then acquired through the thorax. For radiation dose reduction, the follow ing was used: automated exposure control, adjustment of mA and/or kV according to patient size. COMPARISON: None FINDINGS: Image quality: Excellent. Pulmonary arteries: Pulmonary arteries are normal in size, and demonstrate no intraluminal filling d efects to suggest central pulmonary embolism. Lungs and pleura: Lungs are clear. 4 mm calcified granuloma noted in the right lower lobe. No pleura l effusions or pneumothorax. Central and peripheral airways are patent. Mediastinum: Heart size is normal, without pericardial effusion. Atherosclerotic calcifications note d in the aorta and great vessels No mediastinal or hilar adenopathy. Thoracic aorta is normal in rajiv iber and enhancement. Esophagus is normal in caliber, without hiatal hernia. Bones and chest wall: No suspicious bony lesions. Ribs and thoracic spine appear intact throughout. The thyroid is normal. No axillary or supraclavicular adenopathy. Abdomen: Visualized upper abdominal solid organs appear normal in the early arterial phase of enhanc ement. IMPRESSION: 1. No pulmonary embolus. 2. No lung consolidation or pleural effusions. Reviewed by: Melisa Gao MD, PhD on 08/16/2020 6:59 AM PDT Approved by: Melisa Gao MD, PhD on 08/16/2020 6:59 AM PDT Station ID: [id number]
== END 2020-08-15 23:55 | disposition home or self-care (01) ==
LOC: ED 18:58
DX: M54.6 Pain in thoracic spine (principal); R53.1 Weakness; Z95.5 Presence of coronary angioplasty implant and graft; I10 Essential (primary) hypertension
CPT/HCPCS: 36415; 71045; 71275; 80053; 83690; 84484; 85025; 93005; 99284; Q9967

== ENCOUNTER 2020-11-23 08:06 | Outpatient (CLI) | payer MEDICARE, OTHER ==
[2020-11-23 12:19] LABS: BASOPHILS # (AUTO) 0.1 10^3/uL (0.0-0.1); BASOPHILS % (AUTO) 1.3 %; EOSINOPHILS # (AUTO) 0.1 10^3/uL (0.0-0.7); EOSINOPHILS % (AUTO) 2.3 %; HCT - HEMATOCRIT 40.8 % (37.0-47.0); HGB - HEMOGLOBIN 12.9 g/dL (12.0-16.0); LYMPHOCYTES # (AUTO) 1.9 10^3/uL (1.5-3.5); LYMPHOCYTES % (AUTO) 31.5 %; MEAN CORPUSCULAR HEMOGLOBIN 28.6 pg (27.0-31.0); MEAN CORPUSCULAR HGB CONC 31.6 g/dL (32.0-36.0); MEAN CORPUSCULAR VOLUME 90.5 fL (81.0-99.0); MONOCYTES # (AUTO) 0.7 10^3/uL (0.0-1.0); MONOCYTES % (AUTO) 12.2 %; NEUTROPHILS # (AUTO) 3.1 10^3/uL (1.5-6.6); NEUTROPHILS % (AUTO) 52.4 %; PLT - PLATELET COUNT 311 10^3/uL (130-450); RED BLOOD COUNT 4.51 10^6/uL (4.20-5.40); RED CELL DISTRIBUTION WIDTH 13.2 % (12.0-15.0)
[2020-11-23 13:39] LABS: ALBUMIN 4.3 g/dL (3.2-5.5); ALBUMIN/GLOBULIN RATIO 1.3 (1.0-2.2); ALKALINE PHOSPHATASE 63 IU/L (42-121); ALT ALANINE AMINOTRANSFERASE 26 IU/L (10-60); AST ASPARTATE AMINOTRANSFERASE 27 IU/L (10-42); BILIRUBIN,TOTAL 0.9 mg/dL (0.2-1.0); BUN - BLOOD UREA NITROGEN 23 mg/dL (6-20); CALCIUM 9.3 mg/dL (8.5-10.3); CARBON DIOXIDE - CO2 27 mmol/L (21-32); CHLORIDE 98 mmol/L (101-111); CHOL/HDL RATIO 2.4 (<4.4); CHOLESTEROL 132 mg/dL; CREATININE 0.9 mg/dL (0.4-1.0); GFR - MDRD 59 (>89); GLUCOSE 103 mg/dL (70-100); HDL CHOLESTEROL 55 mg/dL; LDL CHOLESTEROL,CALCULATED 59 mg/dL; LDL/HDL RATIO 1.1 (<4.4); POTASSIUM 4.5 mmol/L (3.5-5.0); SODIUM 134 mmol/L (135-145); TOTAL PROTEIN 7.5 g/dL (6.7-8.2); TRIGLYCERIDES 90 mg/dL; VLDL CHOLESTEROL 18 mg/dL
== END 2020-11-23 23:59 | disposition home or self-care (01) ==
LOC: LAB.WCP 08:06
PROVIDERS: ATTEND Family Medicine
DX: I10 Essential (primary) hypertension (principal)
CPT/HCPCS: 36415; 80053; 80061; 83721; 85025

== ENCOUNTER 2021-01-12 18:45 | Outpatient (CLI) | payer MEDICARE, OTHER | END 2021-01-12 18:46 | disposition short-term general hospital (02) | LOC: EMS 18:45 | DX: R07.9 Chest pain, unspecified (principal) | CPT/HCPCS: A0425; A0427 ==

== ENCOUNTER 2021-06-01 09:52 | Outpatient (CLI) | payer MEDICARE, OTHER ==
[2021-06-01 14:37] LABS: BASOPHILS # (AUTO) 0.1 10^3/uL (0.0-0.1); BASOPHILS % (AUTO) 1.2 %; EOSINOPHILS # (AUTO) 0.1 10^3/uL (0.0-0.7); EOSINOPHILS % (AUTO) 1.2 %; HCT - HEMATOCRIT 40.6 % (37.0-47.0); LYMPHOCYTES # (AUTO) 1.7 10^3/uL (1.5-3.5); LYMPHOCYTES % (AUTO) 27.4 %; MEAN CORPUSCULAR HEMOGLOBIN 28.6 pg (27.0-31.0); MEAN CORPUSCULAR VOLUME 89.4 fL (81.0-99.0); MEAN PLATELET VOLUME 10.3 fL (7.9-10.8); MONOCYTES # (AUTO) 0.7 10^3/uL (0.0-1.0); MONOCYTES % (AUTO) 10.9 %; NEUTROPHILS # (AUTO) 3.6 10^3/uL (1.5-6.6); PLT - PLATELET COUNT 293 10^3/uL (130-450); RED BLOOD COUNT 4.54 10^6/uL (4.20-5.40); RED CELL DISTRIBUTION WIDTH 13.8 % (12.0-15.0); WHITE BLOOD COUNT 6.1 x10^3/uL (4.8-10.8)
[2021-06-01 14:52] LABS: ALBUMIN 4.1 g/dL (3.2-5.5); ALBUMIN/GLOBULIN RATIO 1.2 (1.0-2.2); ALKALINE PHOSPHATASE 66 IU/L (42-121); ALT ALANINE AMINOTRANSFERASE 30 IU/L (10-60); AST ASPARTATE AMINOTRANSFERASE 29 IU/L (10-42); BILIRUBIN,TOTAL 0.5 mg/dL (0.2-1.0); BUN - BLOOD UREA NITROGEN 26 mg/dL (6-20); CALCIUM 9.2 mg/dL (8.5-10.3); CARBON DIOXIDE - CO2 27 mmol/L (21-32); CHLORIDE 98 mmol/L (101-111); CHOL/HDL RATIO 2.5 (<4.4); CHOLESTEROL 145 mg/dL; CREATININE 0.8 mg/dL (0.4-1.0); GFR - MDRD 68 (>89); GLUCOSE 100 mg/dL (70-100); HDL CHOLESTEROL 59 mg/dL; LDL CHOLESTEROL,CALCULATED 54 mg/dL; LDL/HDL RATIO 0.9 (<4.4); POTASSIUM 4.4 mmol/L (3.5-5.0); SODIUM 136 mmol/L (135-145); TOTAL PROTEIN 7.5 g/dL (6.7-8.2); TRIGLYCERIDES 162 mg/dL; VLDL CHOLESTEROL 32 mg/dL
== END 2021-06-01 09:53 | disposition home or self-care (01) ==
LOC: LAB.N 09:52
PROVIDERS: ATTEND Family Medicine
DX: I10 Essential (primary) hypertension (principal)
CPT/HCPCS: 36415; 80053; 80061; 83721; 85025